=== PATIENT | male | born 1950 | race African-American/Black ===

== ENCOUNTER 2019-02-01 15:25 | Inpatient (IN) | payer OTHER ==
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
[2019-02-01 17:32] LABS: BASO % 0.7 % (0-2.0); EOS % 0.8 % (0-4.5); HEMATOCRIT 40.1 % (35.4-49); HEMOGLOBIN 12.8 GM/dL (11.7-16.9); LYMPH % 14.2 % (8-40); MCH 26.7 pg (25.7-33.7); MCHC 31.9 g/dl (32.0-35.9); MEAN CELL VOLUME 83.8 fl (80-96); MEAN PLT VOLUME 9.3 fl (7.5-11.1); MONO % 7.6 % (3.8-10.2); NEUT % 76.7 % (42.8-82.8); PLATELET COUNT 233 K/MM3 (134-434); RBC 4.79 M/mm3 (4.00-5.60); RDW 13.4 % (11.9-15.9); WHITE BLOOD COUNT 11.6 K/mm3 (4.0-10.0)
[2019-02-01 18:07] LABS: URINE APPEARANCE CLEAR; URINE BILIRUBIN NEGATIVE (NEGATIVE); URINE COLOR YELLOW; URINE GLUCOSE (UA) 2+ (NEGATIVE); URINE KETONE 1+ (NEGATIVE); URINE LEUK ESTERASE NEGATIVE (NEGATIVE); URINE NITRITE NEGATIVE (NEGATIVE); URINE PROTEIN NEGATIVE (NEGATIVE)
[2019-02-01 18:12] LABS: ALBUMIN 3.7 g/dl (3.4-5.0); BILIRUBIN,TOTAL 0.3 mg/dL (0.2-1); BLOOD UREA NITROGEN 19.2 mg/dL (7-18); CALCIUM 9.3 mg/dL (8.5-10.1); POTASSIUM 4.4 mmol/L (3.5-5.1); TOT PROT 7.6 g/dl (6.4-8.2)
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
[2019-02-01] MEDS ORDERED: ASPIRIN 325 MG ENTERIC COATED TABLET (FP) PO ONE (21:43)
[2019-02-01] MEDS ORDERED: ASPIRIN 325 MG ENTERIC COATED TABLET (FP) ONE (21:49)
--- NOTE | 2019-02-01 22:35 | PN.NIHSS ---
NIH Stroke Scale - Last Known Well Date/Time & Onset Date Last Known Well: 01/27/19 Time Last Known Well: 10:00 - Initial Evaluation Level of consciousness: Alert Ask patient the month and their age: Answers both correctly Ask patient to open & close eyes; make fist and let go: Obeys both correctly Best gaze (horizontal eye movement): Normal Visual field testing: No visual field loss Facial paresis (Show teeth/raise eyebrows/close eyes tight): Minor paralysis ( flattened nasolabial fold, asymmetry on smiling) Motor Function: Left Arm: Normal Motor Function: Right Arm: Drift Motor Function: Left Leg: Normal (extends leg 30 degrees for 5 seconds without drift) Motor Function: Right Leg: Normal (extends leg 30 degrees for 5 seconds without drift) Limb Ataxia: Present in one limb Sensory(Use pinprick test arms,legs,trunk,face/side to side): Mild to moderate decrease in sensation Best language (Describe picture, name items, read sentences): Mild to moderate aphasia Dysarthria (read several words): Normal articulation Extinction and Inattention: No abnormality - Total Score NIH Stroke Scale Score: 5
[2019-02-01 22:52] LABS: BASO % 0.9 % (0-2.0); EOS % 1.5 % (0-4.5); HEMATOCRIT 39.4 % (35.4-49); HEMOGLOBIN 12.5 GM/dL (11.7-16.9); LYMPH % 22.5 % (8-40); MCH 26.4 pg (25.7-33.7); MCHC 31.7 g/dl (32.0-35.9); MEAN PLT VOLUME 9.1 fl (7.5-11.1); NEUT % 64.1 % (42.8-82.8); PLATELET COUNT 217 K/MM3 (134-434); RBC 4.74 M/mm3 (4.00-5.60); RDW 13.7 % (11.9-15.9); WHITE BLOOD COUNT 10.7 K/mm3 (4.0-10.0)
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
[2019-02-01] MEDS ORDERED: HEPARIN NA (PORCINE) 5,000 UNITS/ML 1ML VIAL ONE (23:33)
[2019-02-02] MEDS: SODIUM CHLORIDE 1,000 ML IV SCH ×2 (00:30→17:16)
[2019-02-02] MEDS: HEPARIN NA (PORCINE) 5,000 UNITS/ML 1ML VIAL SQ SCH ×4 (00:30→21:28)
[2019-02-02 01:39] LABS: BASO % 0.6 % (0-2.0); EOS % 1.8 % (0-4.5); HEMATOCRIT 39.5 % (35.4-49); HEMOGLOBIN 12.6 GM/dL (11.7-16.9); LYMPH % 23.2 % (8-40); MCH 26.5 pg (25.7-33.7); MCHC 31.9 g/dl (32.0-35.9); MEAN CELL VOLUME 83.1 fl (80-96); MEAN PLT VOLUME 9.2 fl (7.5-11.1); MONO % 8.9 % (3.8-10.2); NEUT % 65.5 % (42.8-82.8); PLATELET COUNT 221 K/MM3 (134-434); RBC 4.75 M/mm3 (4.00-5.60); RDW 13.5 % (11.9-15.9); WHITE BLOOD COUNT 10.8 K/mm3 (4.0-10.0)
[2019-02-02 02:06] LABS: CHOLESTEROL 141 mg/dL (50-200); HDL CHOLESTEROL 30 mg/dL (40-60); LDL CHOLESTEROL (ONLY SJRH) 92 mg/dL (5-100); TRIGLYCERIDES 104 mg/dL (0-150)
[2019-02-02] MEDS ORDERED: INSULIN (NOVOLOG) ASPART 100 UNITS/ML 10ML VIAL ONE (06:23)
[2019-02-02] MEDS ORDERED: HEPARIN NA (PORCINE) 5,000 UNITS/ML 1ML VIAL ONE ×2 (06:23→15:19)
[2019-02-02] MEDS: INSULIN SLIDING SCALE (NOVOLOG) 1 VIAL SQ SCH ×2 (07:02→17:16)
--- NOTE | 2019-02-02 10:02 | CON.NEURO ---
Consult - Smoking History Smoking history: Never smoked Home Medications - Allergies Allergies/Adverse Reactions: Allergies Allergy/AdvReac Type Severity Reaction Status Date / Time No Known Allergies Allergy Verified 02/01/19 15:34 - Home Medications Home Medications: Ambulatory Orders Diltiazem HCl [Diltiazem 24Hr Cd] 240 mg PO DAILY 02/01/19 Dulaglutide [Trulicity] 0.75 mg SQ WEEKLY 02/01/19 Dulaglutide [Trulicity] 1.5 mg SQ WEEKLY 02/01/19 Famotidine [Pepcid] 40 mg PO DAILY 02/01/19 Fluticasone Propionate [Flonase Allergy Relief] 9.9 ml NS PRN 02/01/19 Fluticasone/Salmeterol [Advair 250-50 Diskus] 2 inh IN DAILY 02/01/19 Glimepiride 4 mg PO DAILY 02/01/19 Metoprolol Tartrate [Lopressor] 50 mg PO BID 02/01/19 Montelukast Sodium [Singulair] 10 mg PO DAILY 02/01/19 Sitagliptin Phosphate [Januvia] 50 mg PO DAILY 02/01/19 Spironolactone 25 mg PO DAILY 02/01/19 Valsartan/Hydrochlorothiazide [Valsartan-Hctz 320-12.5 mg Tab] 1 tab PO DAILY Physical Exam-Neuro Vital Signs: Vital Signs Temperature 99.4 F 02/01/19 23:00 Pulse Rate 68 02/01/19 19:15 Respiratory Rate 16 02/01/19 19:15 Blood Pressure 145/65 02/01/19 19:15 O2 Sat by Pulse Oximetry (%) 99 02/01/19 15:29 Labs: CBC, BMP 02/02/19 01:25 02/01/19 17:20 Assessment/Plan cc Right sided hemiparesis HPI 69 year old male history of HTN,IDDM, Asthma. Patient has history of DM, HTN , Asthma. He was not taking aspirin or statin at home. Patient has right sided hemiparesis and weakness, not feeling well for five days. Patient saw his pmd on january 28 and suspected to have ? viral illness. Patient has fall in his bathroom, and caem to hospital. His ct head showed left mca /ethics instructor region acute/subacute ischemic stroke. 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 Allergies No Known Allergies Allergy (Verified 02/01/19 15:34) HOME MEDICATIONS: Home Medications Medication Instructions Recorded Diltiazem HCl [Diltiazem 24Hr Cd] 240 mg PO DAILY 02/01/19 Dulaglutide [Trulicity] 0.75 mg SQ WEEKLY 02/01/19 Dulaglutide [Trulicity] 1.5 mg SQ WEEKLY 02/01/19 Famotidine [Pepcid] 40 mg PO DAILY 02/01/19 Glimepiride 4 mg PO DAILY 02/01/19 Metoprolol Tartrate [Lopressor] 50 mg PO BID 02/01/19 Sitagliptin Phosphate [Januvia] 50 mg PO 02/01/19 Spironolactone 25 mg PO DAILY 02/01/19 Valsartan/Hydrochlorothiazide tab PO DAILY 02/01/19 [Valsartan-Hctz 320-12.5 mg Tab] ROS,FH,SH reviewed in chart NEUROLOGICAL EXAMINATION Alert oriented x 3, speech is normal, neck is supple vss , bp on admission is 154/100 eomi, pupils reactive no face asymmetry moving all extremity now, he has right shoulder abduction mild weakness ct head showed Left DIRECTOR OF LEADERSHIP DEVELOPMENT/MCA ischemic lesion Assessment/Plan 69 year old male history of DM,HTN, came with right sided hemiparesis, symptoms partially resolved and still have mild right arm weakness. Patient left ica stenosis , ct showed left ethics instructor/mca ischemic lesion Plan: COntinue aspirin and statin - speech/swallow, PT , DVT Prophylaxis -vascular surgery consult - life style modifications, stroke education Thanking you so much Holden Jones MD
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
--- NOTE | 2019-02-02 12:53 | EKG ---
Test Reason : Blood Pressure : / mmHG Vent. Rate : 072 BPM Atrial Rate : 072 BPM P-R Int : 172 ms QRS Dur : 086 ms QT Int : 376 ms P-R-T Axes : 066 -28 079 degrees QTc Int : 411 ms NORMAL SINUS RHYTHM SEPTAL INFARCT , AGE UNDETERMINED ABNORMAL ECG WHEN COMPARED WITH ECG OF 01-FEB-2019 19:31, SEPTAL INFARCT IS NOW PRESENT Confirmed by MEGAN BARRIGA MD ([id number]) on 02/02/2019 12:52:49 PM Referred By: Confirmed By:MEGAN BARRIGA MD
--- NOTE | 2019-02-02 12:54 | EKG ---
Test Reason : Blood Pressure : / mmHG Vent. Rate : 066 BPM Atrial Rate : 066 BPM P-R Int : 186 ms QRS Dur : 080 ms QT Int : 392 ms P-R-T Axes : 070 -14 073 degrees QTc Int : 410 ms POOR DATA QUALITY, INTERPRETATION MAY BE ADVERSELY AFFECTED NORMAL SINUS RHYTHM NORMAL ECG NO PREVIOUS ECGS AVAILABLE Confirmed by MEGAN BARRIGA MD ([id number]) on 02/02/2019 12:53:56 PM Referred By: Confirmed By:MEGAN BARRIGA MD
[2019-02-02 13:08] LABS: CALCIUM 9.4 mg/dL (8.5-10.1); CREATININE 1.8 mg/dL (0.55-1.3); PHOSPHOROUS 3.1 mg/dL (2.5-4.9)
[2019-02-02] MEDS ORDERED: ACETAMINOPHEN INJECTION 0 ML IVPB ONE (13:18)
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
[2019-02-02 15:00] LABS: BLOOD UREA NITROGEN 15.2 mg/dL (7-18); CALCIUM 9.3 mg/dL (8.5-10.1); CREATININE 1.7 mg/dL (0.55-1.3); POTASSIUM 4.1 mmol/L (3.5-5.1)
[2019-02-02] MEDS ORDERED: ASPIRIN COATED 81 MG TABLET.EC ONE (15:18)
[2019-02-02] MEDS: ASPIRIN COATED 81 MG TABLET.EC PO SCH (15:39)
--- NOTE | 2019-02-02 15:59 | ECHO ---
Name: DIEGO BHATIASR Exam:Adult Echocardiogram Study Date: 02/02/2019 02:02 PM Age: 69 yrs Reason For Study: EVALUATE CARDIAC FUNCTION Height: 66 in Weight: 191 lb BSA: 2.0 m2 MMode/2D Measurements & Calculations IVSd: 1.0 cm Ao root diam: 3.4 cm LVIDd: 5.1 cm LA dimension: 3.1 cm LVIDs: 3.1 cm LVPWd: 0.73 cm EDV(Teich): 124.5 ml LVOT diam: 2.0 cm ESV(Teich): 38.1 ml Doppler Measurements & Calculations MV E max jag: 85.9 cm/sec Ao V2 max: 154.6 cm/sec MV A max jag: 137.2 cm/sec Ao max P.6 mmHg MV E/A: 0.63 Ao V2 mean: 107.5 cm/sec MV dec time: 0.21 sec Ao mean P.2 mmHg Ao V2 VTI: 26.9 cm AI P1/2t: 530.2 msec TOÑA(V,D): 1.6 cm2 AI max jag: 272.8 cm/sec LV V1 max P.6 mmHg AI max P.4 mmHg LV V1 max: 80.2 cm/sec AI dec slope: 150.7 cm/sec2 TR max jag: 251.6 cm/sec Med Peak E' Jag: 7.5 cm/sec TR max P.4 mmHg Med E/e': 11.4 Lat Peak E' Jag: 9.0 cm/sec Lat E/e': 9.6 Procedure A complete two-dimensional transthoracic echocardiogram was performed (2D, M-mode, Doppler and color flow Doppler). Left Ventricle The left ventricle is normal in size. Left ventricular systolic function is normal. Ejection Fraction = 65- 70%. No regional wall motion abnormalities noted. Right Ventricle The right ventricle is normal size. The right ventricular systolic function is normal. RV systolic TD I is 20 cm/s. Atria The left atrial size is normal. Right atrial size is normal. Mitral Valve There is mild mitral annular calcification. There is no mitral regurgitation noted. Tricuspid Valve The tricuspid valve is normal in structure and function. There is mild tricuspid regurgitation. Pulmo nary artery systolic pressure is at least 32 mmHg if RA pressure is assumed 3 mmHg. Aortic Valve There is mild aortic sclerosis.;. Mild aortic regurgitation. Pulmonic Valve The pulmonic valve is not well visualized. Great Vessels The aortic root is normal size. Pericardium/Pleura There is no pericardial effusion. Interpretation Summary The left ventricle is normal in size. Left ventricular systolic function is normal. No regional wall motion abnormalities noted. Ejection Fraction = 65-70%. The right ventricular systolic function is normal. The left atrial size is normal. Right atrial size is normal. There is mild mitral annular calcification. There is mild tricuspid regurgitation. Pulmonary artery systolic pressure is at least 32 mmHg if RA pressure is assumed 3 mmHg There is mild aortic sclerosis. Mild aortic regurgitation. There is no pericardial effusion. Felix Calvillo MD 02/02/2019 03:58 PM
[2019-02-02 16:44] VITALS: BMI 29.2
--- NOTE | 2019-02-02 17:55 | CONSULT ---
Consult Consult Specialty:: Vascular Surgery Reason for Consultation:: right sided weakness. - History Source Limitations to Obtaining History: No Limitations - Alcohol/Substance Use Hx Alcohol Use: No - Smoking History Smoking history: Never smoked Have you smoked in the past 12 months: No Home Medications - Allergies Allergies/Adverse Reactions: Allergies Allergy/AdvReac Type Severity Reaction Status Date / Time No Known Allergies Allergy Verified 02/01/19 15:34 - Home Medications Home Medications: Ambulatory Orders Diltiazem HCl [Diltiazem 24Hr Cd] 240 mg PO DAILY 02/01/19 Dulaglutide [Trulicity] 0.75 mg SQ WEEKLY 02/01/19 Dulaglutide [Trulicity] 1.5 mg SQ WEEKLY 02/01/19 Famotidine [Pepcid] 40 mg PO DAILY 02/01/19 Fluticasone Propionate [Flonase Allergy Relief] 9.9 ml NS PRN 02/01/19 Fluticasone/Salmeterol [Advair 250-50 Diskus] 2 inh IN DAILY 02/01/19 Glimepiride 4 mg PO DAILY 02/01/19 Metoprolol Tartrate [Lopressor] 50 mg PO BID 02/01/19 Montelukast Sodium [Singulair] 10 mg PO DAILY 02/01/19 Sitagliptin Phosphate [Januvia] 50 mg PO DAILY 02/01/19 Spironolactone 25 mg PO DAILY 02/01/19 Valsartan/Hydrochlorothiazide [Valsartan-Hctz 320-12.5 mg Tab] 1 tab PO DAILY Review of Systems - Review of Systems Constitutional: reports: No Symptoms Eyes: reports: No Symptoms HENT: reports: No Symptoms Neck: reports: No Symptoms Cardiovascular: reports: No Symptoms Respiratory: reports: No Symptoms Gastrointestinal: reports: No Symptoms Genitourinary: reports: No Symptoms Musculoskeletal: reports: No Symptoms Integumentary: reports: No Symptoms Neurological: reports: No Symptoms Endocrine: reports: Increased Thirst Hematology/Lymphatic: reports: No Symptoms Psychiatric: reports: No Symptoms Physical Exam Vital Signs: Vital Signs Temperature 98 F 02/02/19 16:30 Pulse Rate 87 02/02/19 16:30 Respiratory Rate 20 02/02/19 16:30 Blood Pressure 160/77 02/02/19 16:30 O2 Sat by Pulse Oximetry (%) 98 02/02/19 16:30 Constitutional: Yes: Well Nourished, No Distress, Calm Eyes: Yes: WNL, Conjunctiva Clear, EOM Intact HENT: Yes: WNL, Atraumatic, Normocephalic Neck: Yes: WNL, Supple, Trachea Midline Cardiovascular: Yes: WNL, Regular Rate and Rhythm Respiratory: Yes: WNL, Regular, CTA Bilaterally Gastrointestinal: Yes: WNL, Normal Bowel Sounds ...Rectal Exam: Yes: WNL Renal/: Yes: WNL Breast(s): Yes: WNL Musculoskeletal: Yes: WNL Extremities: Yes: WNL Edema: No Peripheral Pulses WNL: Yes Integumentary: Yes: WNL Neurological: Yes: WNL, Alert, Oriented ...Motor Strength: WNL Psychiatric: Yes: WNL Labs: CBC, BMP 02/02/19 01:25 02/02/19 14:20 Problem List - Problems (1) Acute left ICA ischemic stroke Assessment/Plan: Subacute stroke of left MCA area. Pt has critical stenosis of left ICA of about 90%. Pt started having right sided weakness last week and slowly got better. Pt needs rehab for 4 weeks to regain full function of right side. Pt will then CEA of left side. Might even benefit from a carotid stent at tertiary care center. Pt can follow up with me after transfer to rehab. Please maKE pt a appt in the office prior to DC --[phone] Sami Mosqueda DO Code(s): I63.232 - CEREB INFRC DUE TO UNSP OCCLS OR STENOS OF LEFT CAROTID ART
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
[2019-02-02] MEDS: METOPROLOL TARTRATE 50 MG TABLET (FP) PO SCH (21:28)
[2019-02-02] MEDS: ATORVASTATIN CA 80 MG TABLET (FP) PO SCH (21:28)
[2019-02-03] MEDS: HEPARIN NA (PORCINE) 5,000 UNITS/ML 1ML VIAL SQ SCH ×3 (06:34→21:26)
[2019-02-03] MEDS: INSULIN SLIDING SCALE (NOVOLOG) 1 VIAL SQ SCH ×2 (06:34→16:45)
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
[2019-02-03] MEDS: METOPROLOL TARTRATE 50 MG TABLET (FP) PO SCH ×2 (09:54→21:26)
[2019-02-03] MEDS: ASPIRIN COATED 81 MG TABLET.EC PO SCH (09:54)
--- NOTE | 2019-02-03 10:33 | PN ---
Progress Note (short form) - Note Progress Note: 69 year old male history of HTN,IDDM, Asthma. Patient has history of DM, HTN, Asthma. He was not taking aspirin or statin at home. Patient has right sided hemiparesis and weakness, not feeling well for five days. Patient saw his pmd on january 28 and suspected to have ? viral illness. Patient has fall in his bathroom, and caem to hospital. His ct head showed left mca /barista region acute/subacute ischemic stroke. His carotid ultrasound showed left critical stenosis no new complaining, right arm is weak. Vascualr surgery consult appreciated NEUROLOGICAL EXAMINATION Alert oriented x 3, speech is normal, neck is supple vss , bp on admission is 154/100 eomi, pupils reactive no face asymmetry moving all extremity now, he has right shoulder abduction mild weakness ct head showed Left SENIOR INTERNATIONAL TAX MANAGER/MCA ischemic lesion Assessment/Plan 69 year old male history of DM,HTN, came with right sided hemiparesis, symptoms partially resolved and still have mild right arm weakness. Patient left ica stenosis , ct showed left barista/mca ischemic lesion Plan: COntinue aspirin and statin - speech/swallow, PT , DVT Prophylaxis -vascular surgery consult appreciated - life style modifications, stroke education was discussed Thanking you so much Holden Jones MD
[2019-02-03] MEDS ORDERED: INSULIN (NOVOLOG) ASPART 100 UNITS/ML 10ML VIAL ONE (11:14)
--- NOTE | 2019-02-03 11:52 | PN ---
Progress Note, H[employer] - Note Progress Note: Selected Entries 02/03/19 02/03/19 02/03/19 01:00 05:00 09:00 Breakfast Temperature 98.3 F 97.8 F 97.8 F 02/03/19 10:57 Breakfast 100% Temperature Laboratory Tests 02/01/19 02/02/19 17:20 01:25 WBC 11.6 H 10.8 H MRI noted Patient left 90% ica stenosis , Seen by Neuro/Vascular sx. ct showed left lap checker/mca ischemic lesion Pt is Oriented verbal, speech precise, eating well. Upon reassessment, anomia with errors with denial of deficits. Eg can say hospital, [facility] but not [facility],Right/left errors and difficulty with complex multi-commands. Functional, denies difficulty/errors. Pt will benefit from language tx.
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
[2019-02-03] MEDS: VALSARTAN 160 MG TABLET (UD) PO SCH (12:15)
--- NOTE | 2019-02-03 16:33 | CONSULT ---
Consult - text type - Consultation Consultation Note: Renal consult for EDWAR vs. CKD This is a 69 year old gentleman with history of CKD, hypertension, IDDM, asthma who presented with unitateral weakness, fatigue and confusion and noted to have Cr of 2 to 1.7. PMhx: as above Allergies: NKDA Family Hx: NC Social Hx: No T/A/D ROS: as per HPI Home Medications Medication Instructions Recorded Diltiazem HCl [Diltiazem 24Hr Cd] 240 mg PO DAILY 02/01/19 Dulaglutide [Trulicity] 1.5 mg SQ WEEKLY 02/01/19 Famotidine [Pepcid] 40 mg PO DAILY 02/01/19 Fluticasone Propionate [Flonase 9.9 ml NS PRN 02/01/19 Allergy Relief] Fluticasone/Salmeterol [Advair 2 inh IN DAILY 02/01/19 250-50 Diskus] Glimepiride 4 mg PO DAILY 02/01/19 Metoprolol Tartrate [Lopressor] 50 mg PO BID 02/01/19 Montelukast Sodium [Singulair] 10 mg PO DAILY 02/01/19 Sitagliptin Phosphate [Januvia] 50 mg PO DAILY 02/01/19 Spironolactone 25 mg PO DAILY 02/01/19 Valsartan/Hydrochlorothiazide 1 tab PO DAILY 02/01/19 [Valsartan-Hctz 320-12.5 mg Tab] Albuterol 0.083% Nebulizer Ayanna 1 amp IH PRN PRN 02/03/19 [Ventolin 0.083% Nebulizer Soln -] Clomiphene Citrate 50 mg PO DAILY 02/03/19 Ipratropium/Albuterol Sulfate 1 inh IH DAILY 02/03/19 [Combivent Respimat 20-100 Mcg] Vital Signs Temperature 98.2 F 02/03/19 14:53 Pulse Rate 83 02/03/19 14:53 Respiratory Rate 20 02/03/19 14:53 Blood Pressure 147/74 02/03/19 14:53 O2 Sat by Pulse Oximetry (%) 99 02/03/19 09:00 Intake & Output 01/31/19 02/01/19 02/02/19 02/03/19 23:59 23:59 23:59 23:59 Intake Total 300 700 Balance 300 700 Weight 87 kg 84.822 kg NAD awake and alert neck supple RRR CTA soft NT/ND No LE edema CBC, BMP 02/02/19 01:25 02/02/19 14:20 Current Medications Aspirin (Ecotrin -) 81 mg PO DAILY [facility] Last Admin: 02/03/19 09:54 Dose: 81 mg Atorvastatin Calcium (Lipitor -) 80 mg PO HS [facility] Last Admin: 02/02/19 21:28 Dose: 80 mg Heparin Sodium (Porcine) (Heparin -) 5,000 unit SQ TID [facility] Last Admin: 02/03/19 13:24 Dose: 5,000 unit Insulin Aspart (Novolog Vial Sliding Scale -) 1 vial SQ BIDAC [facility]; Protocol Last Admin: 02/03/19 06:34 Dose: Not Given Metoprolol Tartrate (Lopressor -) 50 mg PO BID [facility] Last Admin: 02/03/19 09:54 Dose: 50 mg Valsartan (Diovan -) 320 mg PO DAILY [facility] Last Admin: 02/03/19 12:15 Dose: 320 mg 69 year old gentleman with history of CKD, hypertension, IDDM, asthma who presented with unitateral weakness, fatigue and confusion and noted to have Cr of 2 to 1.7. 1. CKD stage 3a 2. TIA vs. CVA 3. Hypertension 4. IDDM Renal function stable. No overt electrolyte or acid base disturbance Renal US showed no obstruction and normal echotexture. UA w/o active sediment Will need to obtain outpatient records to trend renal function over longer time period avoid IV contrast and NSAIDs continue present management including ARB. Goal BP < 130/80 Thank you will follow Bertrand De La Paz DO
[2019-02-03] MEDS: ATORVASTATIN CA 80 MG TABLET (FP) PO SCH (21:26)
[2019-02-04] MEDS: INSULIN SLIDING SCALE (NOVOLOG) 1 VIAL SQ SCH (06:02)
[2019-02-04] MEDS: HEPARIN NA (PORCINE) 5,000 UNITS/ML 1ML VIAL SQ SCH ×2 (06:04→14:55)
--- NOTE | 2019-02-04 09:09 | PN ---
Progress Note (short form) - Note Progress Note: 69 year old male history of HTN,IDDM, Asthma. Patient has history of DM, HTN, Asthma. He was not taking aspirin or statin at home. Patient has right sided hemiparesis and weakness, not feeling well for five days. Patient saw his pmd on january 28 and suspected to have ? viral illness. Patient has fall in his bathroom, and caem to hospital. His ct head showed left mca /recreation facilities supervisor region acute/subacute ischemic stroke. His carotid ultrasound showed left critical stenosis no new complaining, right arm is weak. Vascualr surgery consult appreciated , pateint is feeling better NEUROLOGICAL EXAMINATION Alert oriented x 3, speech is normal, neck is supple vss , eomi, pupils reactive no face asymmetry moving all extremity now, he has right shoulder abduction mild weakness ct head showed Left TAX COMPLIANCE REPRESENTATIVE/MCA ischemic lesion Assessment/Plan 69 year old male history of DM,HTN, came with right sided hemiparesis, symptoms partially resolved and still have mild right arm weakness. Patient left ica stenosis , ct showed left recreation facilities supervisor/mca ischemic lesion Plan: COntinue aspirin and statin - speech/swallow, PT , DVT Prophylaxis -vascular surgery consult appreciated , would be a candidate for CEA in 4-6 week and would follow up with dr rodas as outpatient - life style modifications, stroke education was discussed Thanking you so much Holden Jones MD
[2019-02-04 09:29] VITALS: BP 134/70; PULSE 90; TEMP 98.3
[2019-02-04] MEDS: METOPROLOL TARTRATE 50 MG TABLET (FP) PO SCH (11:15)
[2019-02-04] MEDS: ASPIRIN COATED 81 MG TABLET.EC PO SCH (11:15)
[2019-02-04] MEDS: VALSARTAN 160 MG TABLET (UD) PO SCH (11:15)
--- NOTE | 2019-02-04 11:32 | PN ---
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 Right/left confusion. Errors in following complex commands, recalling longer directions, which will affect his functional ability for ADL. Nursing observed assessment. Good spirits. Doing well with diet. REC: Out pt Sp/Language Cognitive tx- consider [facility]
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
== END 2019-02-04 15:25 | disposition home health service (06) | DRG 65 ==
LOC: JER 15:25 → JERBED 20:02 → J4W 02-02 16:33
PROVIDERS: ADMIT Internal Medicine; ATTEND Hospitalist
DX: I63.232 Cerebral infarction due to unspecified occlusion or stenosis of left carotid arteries (principal); I69.351 Hemiplegia and hemiparesis following cerebral infarction affecting right dominant side; N17.9 Acute kidney failure, unspecified; R29.810 Facial weakness; R29.705 NIHSS score 5; I12.9 Hypertensive chronic kidney disease with stage 1 through stage 4 chronic kidney disease, or unspecified chronic kidney disease; E11.9 Type 2 diabetes mellitus without complications; I10 Essential (primary) hypertension; E11.22 Type 2 diabetes mellitus with diabetic chronic kidney disease; N18.3 Chronic kidney disease, stage 3 (moderate); E66.9 Obesity, unspecified; Z68.29 Body mass index [BMI] 29.0-29.9, adult; D72.829 Elevated white blood cell count, unspecified; R29.6 Repeated falls
CPT/HCPCS: 36415; 70450-TC; 70544-TC; 70547-TC; 70551-TC; 71045-TC-FY; 76775-TC; 76856-TC; 80048; 80053; 80061; 81003; 82436; 82550; 82553; 82962; 83036; 83721; 83735; 83935; 84100; 84133; 84300; 84443; 84484; 85025; 87086; 93005; 93010; 93306-TC; 93880-TC; 97116-GP; 97161-GP; 99285-25; J1644; J7030

== ENCOUNTER 2019-05-25 18:00 | Inpatient (IN) | payer OTHER ==
--- NOTE | 2019-05-25 18:07 | PDOC ---
Rapid Medical Evaluation Time Seen by Provider: 05/25/19 18:02 Medical Evaluation: Allergies Allergy/AdvReac Type Severity Reaction Status Date / Time No Known Allergies Allergy Verified 02/01/19 15:34 05/25/19 18:03 This patient had brief in-person evaluation in triage cc: sent for admission HPI: patient states sent by pmd for admission for hydration Reports s/p stroke 2019, and needs procedure. States lab work is abnormal PE: appears well unlabored breathing heart s1s2 Oders: labs ordered This patient will proceed to emergency department for further evaluation. Discharge Disposition - Diagnosis Abnormal respiratory laboratory results - Referrals - Patient Instructions - Post Discharge Activity
[2019-05-25 18:48] LABS: BASO % 0.9 % (0-2.0); EOS % 14.5 % (0-4.5); HEMATOCRIT 41.9 % (35.4-49); HEMOGLOBIN 13.4 GM/dL (11.7-16.9); LYMPH % 22.2 % (8-40); MCH 26.6 pg (25.7-33.7); MCHC 31.9 g/dl (32.0-35.9); MEAN CELL VOLUME 83.3 fl (80-96); MEAN PLT VOLUME 10.1 fl (7.5-11.1); MONO % 7.7 % (3.8-10.2); NEUT % 54.7 % (42.8-82.8); PLATELET COUNT 192 K/MM3 (134-434); RBC 5.03 M/mm3 (4.00-5.60); RDW 15.2 % (11.9-15.9); WHITE BLOOD COUNT 10.4 K/mm3 (4.0-10.0)
[2019-05-25 19:02] LABS: INR 1.09 (0.83-1.09); PROTHROMBIN TIME (PATIENT) 12.9 SEC (9.7-13.0)
[2019-05-25 19:04] LABS: ACTIVATED PTT 38.2 SECONDS (25.2-36.5)
[2019-05-25 19:14] LABS: ALBUMIN 3.8 g/dl (3.4-5.0); BILIRUBIN,TOTAL 0.2 mg/dL (0.2-1); BLOOD UREA NITROGEN 22.7 mg/dL (7-18); CALCIUM 9.4 mg/dL (8.5-10.1); CREATININE 1.9 mg/dL (0.55-1.3); POTASSIUM 4.2 mmol/L (3.5-5.1); TOT PROT 7.4 g/dl (6.4-8.2)
--- NOTE | 2019-05-25 20:22 | PDOC ---
History of Present Illness - General Chief Complaint: Revisit, Lab Variance Stated Complaint: SENT BY PCP/EVALUATION Time Seen by Provider: 05/25/19 18:02 History Source: Patient - History of Present Illness Initial Comments: 05/25/19 20:18 69 year sent by PCP and Dr. Mosqueda for evaluation and possible admission. patient reports that he is to have a cartoid stent procedure done, PCP couldnt clear for surgery due to abnormal kidney function. as per patient sent to the hospital for possible hydration/ patient denies chest pain, NVD, abdominal pain , headache, dizziness Past History - Past Medical History Allergies/Adverse Reactions: Allergies Allergy/AdvReac Type Severity Reaction Status Date / Time No Known Allergies Allergy Verified 05/25/19 18:07 Home Medications: Ambulatory Orders Dulaglutide [Trulicity] 1.5 mg SQ WEEKLY 02/01/19 Fluticasone/Salmeterol [Advair 250-50 Diskus] 2 inh IN DAILY PRN 02/01/19 Metoprolol Tartrate [Lopressor] 50 mg PO BID 02/01/19 Montelukast Sodium [Singulair] 10 mg PO DAILY PRN 02/01/19 Sitagliptin Phosphate [Januvia] 50 mg PO DAILY 02/01/19 Valsartan/Hydrochlorothiazide [Valsartan-Hctz 320-12.5 mg Tab] 1 tab PO DAILY Ipratropium/Albuterol Sulfate [Combivent Respimat 20-100 Mcg] 1 inh IH DAILY PRN 02/03/19 Aspirin Coated [Ecotrin -] 81 mg PO DAILY 30 Days #30 tablet.ec 02/04/19 Atorvastatin Ca [Lipitor] 80 mg PO HS 30 Days #30 tablet 02/04/19 Spironolactone [Aldactone] 1 tab PO DAILY 02/23/19 Asthma: Yes CVA: Yes (01/2019) COPD: No Diabetes: Yes HTN: Yes Hypercholesterolemia: Yes - Immunization History Immunization Up to Date: Yes - Psycho Social/Smoking Cessation Hx Smoking History: Never smoked Have you smoked in the past 12 months: No Information on smoking cessation initiated: No Hx Alcohol Use: No Drug/Substance Use Hx: No Review of Systems - Review of Systems Able to Perform ROS?: Yes Is the patient limited German proficient: No Constitutional: No: Symptoms Reported, See HPI, Chills, Diaphoresis, Fever, Loss of Appetite, Malaise, Night Sweats, Weakness, Weight Stable, Unintentional Wgt. Loss, Unexplained wgt Loss, Other HEENTM: No: Symptoms Reported, See HPI, Eye Pain, Blurred Vision, Tearing, Recent change in vision, Double Vision, Cataracts, Ear Pain, Ocular Prothesis, Ear Discharge, Nose Pain, Nose Congestion, Tinnitus, Nose Bleeding, Hearing Loss , Throat Pain, Throat Swelling, Mouth Pain, Dental Problems, Difficulty Swallowing, Mouth Swelling, Other Cardiac (ROS): No: Symptoms Reported, See HPI, Chest Pain, Edema, Irregular Heart Rate, Lightheadedness, Palpitations, Syncope, Chest Tightness, Other Neurological: No: Symptoms reported, See HPI, Headache, Numbness, Paresthesia, Pre-Existing Deficit, Seizure, Tingling, Tremors, Weakness, Unsteady Gait, Ataxia, Dizziness, Other *Physical Exam - Vital Signs Last Vital Signs Temp Pulse Resp BP Pulse Ox 97.8 F 60 18 153/53 L 98 05/25/19 18:03 05/25/19 18:03 05/25/19 18:03 05/25/19 18:05/25/19 18:03 - Physical Exam General Appearance: Yes: Appropriately Dressed HEENT: positive: Normal ENT Inspection Respiratory/Chest: positive: Lungs Clear Cardiovascular: positive: Regular Rhythm, Regular Rate Gastrointestinal/Abdominal: positive: Normal Bowel Sounds, Soft. negative: Tender Extremity: positive: Normal Capillary Refill, Normal Inspection, Normal Range of Motion Integumentary: positive: Normal Color, Dry, Warm Neurologic: positive: Fully Oriented, Alert, Normal Mood/Affect ED Treatment Course - LABORATORY CBC & Chemistry Diagram: 05/25/19 18:19 05/25/19 18:19 - ADDITIONAL ORDERS Additional order review: Laboratory Results 05/25/19 05/25/19 18:19 18:19 PT with INR 12.90 INR 1.09 PTT (Actin FS) 38.2 H Sodium 138 Potassium 4.2 Chloride 106 Carbon Dioxide 25 Anion Gap 7 L BUN 22.7 H Creatinine 1.9 H Est GFR (CKD-EPI)AfAm 41.07 Est GFR (CKD-EPI)NonAf 35.44 Random Glucose 252 H Calcium 9.4 Total Bilirubin 0.2 AST 34 ALT 72 H Alkaline Phosphatase 153 H Total Protein 7.4 Albumin 3.8 05/25/19 18:19 RBC 5.03 MCV 83.3 MCHC 31.9 L RDW 15.2 D MPV 10.1 Neutrophils % 54.7 Lymphocytes % 22.2 Monocytes % 7.7 Eosinophils % 14.5 H D Basophils % 0.9 Medical Decision Making - Medical Decision Making elevated creatinine; P: cbc cmp ua chest xray ekg 05/25/19 22:[address] Mosqueda. Reports that patient has a left carotid stenosis and need a CTA to plan for future surgery. Patient has creatinine elevated to 1.9. 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
[2019-05-25] MEDS ORDERED: SODIUM CHLORIDE 1,000 ML IV SCH ×2 (23:00)
--- NOTE | 2019-05-25 23:02 | HP ---
Admitting History and Physical - Primary Care Physician PCP: Vega Arnold Jr - Admission Chief Complaint: Abnormal Lab Value History of Present Illness: This is a 69 y/o man with a PMHx of CVA (right sided residual), HTN, HLD, IDDM, Asthma. Who presents to the ED sent in by the PCP and Dr. Mosqueda for evaluation and admission for elevated creatinine. Patient and his reports that he is scheduled to have a carotid stent procedure done, PCP couldn't clear for surgery due to abnormal kidney function. Patient denies numbness or tingling sensations. 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 Cardiovascular: Yes: HTN, Hyperlipdemia Pulmonary: Yes: Asthma Endocrine: Yes: Diabetes Mellitus - Smoking History Smoking history: Never smoked Have you smoked in the past 12 months: No - Alcohol/Substance Use Hx Alcohol Use: No History of Substance Use: reports: None - Social History Usual Living Arrangement: Yes: With Spouse ADL: Family Assistance History of Recent Travel: No Home Medications - Allergies Allergies/Adverse Reactions: Allergies Allergy/AdvReac Type Severity Reaction Status Date / Time No Known Allergies Allergy Verified 05/25/19 18:07 - Home Medications Home Medications: Ambulatory Orders Fluticasone/Salmeterol [Advair 250-50 Diskus] 2 inh IN DAILY PRN 02/01/19 Metoprolol Tartrate [Lopressor] 50 mg PO BID 02/01/19 Montelukast Sodium [Singulair] 10 mg PO DAILY PRN 02/01/19 Sitagliptin Phosphate [Januvia] 50 mg PO DAILY 02/01/19 Valsartan/Hydrochlorothiazide [Valsartan-Hctz 320-12.5 mg Tab] 1 tab PO DAILY Ipratropium/Albuterol Sulfate [Combivent Respimat 20-100 Mcg] 1 inh IH DAILY PRN 02/03/19 Aspirin Coated [Ecotrin -] 81 mg PO DAILY 30 Days #30 tablet.ec 02/04/19 Atorvastatin Ca [Lipitor] 80 mg PO HS 30 Days #30 tablet 02/04/19 Spironolactone [Aldactone] 1 tab PO DAILY 02/23/19 Family Medical History Family History: Unable to Obtain Review of Systems - Review of Systems Constitutional: reports: No Symptoms Eyes: reports: No Symptoms HENT: reports: No Symptoms Neck: reports: No Symptoms Cardiovascular: reports: No Symptoms Respiratory: reports: No Symptoms Gastrointestinal: reports: No Symptoms Genitourinary: reports: No Symptoms Breasts: reports: No Symptoms Reported Musculoskeletal: reports: No Symptoms Integumentary: reports: No Symptoms Neurological: reports: No Symptoms Endocrine: reports: No Symptoms Hematology/Lymphatic: reports: No Symptoms Psychiatric: reports: No Symptoms Pain Intensity: 0 Physical Examination Vital Signs: Vital Signs Temperature 97.8 F 05/25/19 18:03 Pulse Rate 60 05/25/19 18:03 Respiratory Rate 18 05/25/19 18: Blood Pressure 153/53 L 05/25/19 18:03 O2 Sat by Pulse Oximetry (%) 98 05/25/19 18:03 Constitutional: Yes: Well Nourished, No Distress, Calm Eyes: Yes: WNL, Conjunctiva Clear, EOM Intact, PERRL HENT: Yes: WNL, Atraumatic, Normocephalic Neck: Yes: WNL, Supple, Trachea Midline Cardiovascular: Yes: WNL, Regular Rate and Rhythm, S1, S2 Respiratory: Yes: Rhonchi (upper lobes). No: SOB, SOB on Exertion Gastrointestinal: Yes: WNL, Normal Bowel Sounds, Soft ...Rectal Exam: Yes: Deferred Renal/: Yes: WNL Breast(s): Yes: WNL Musculoskeletal: Yes: WNL Extremities: Yes: WNL Edema: No Peripheral Pulses WNL: Yes Neurological: Yes: Alert, Oriented, Pre-Existing Deficit Psychiatric: Yes: WNL, Alert, Oriented Labs: CBC, BMP 05/25/19 18:19 05/25/19 18:19 Laboratory Results - last 24 hr 05/25/19 05/25/19 05/25/19 18:19 18:19 18: WBC 10.4 H RBC 5.03 Hgb 13.4 Hct 41.9 MCV 83.3 MCH 26.6 MCHC 31.9 L RDW 15.2 D Plt Count 192 MPV 10.1 Absolute Neuts (auto) 5.7 Neutrophils % 54.7 Lymphocytes % 22.2 Monocytes % 7.7 Eosinophils % 14.5 H D Basophils % 0.9 Nucleated RBC % 0 PT with INR 12.90 INR 1.09 PTT (Actin FS) 38.2 H Sodium 138 Potassium 4.2 Chloride 106 Carbon Dioxide 25 Anion Gap 7 L BUN 22.7 H Creatinine 1.9 H Est GFR (CKD-EPI)AfAm 41.07 Est GFR (CKD-EPI)NonAf 35.44 Random Glucose 252 H Calcium 9.4 Total Bilirubin 0.2 AST 34 ALT 72 H Alkaline Phosphatase 153 H Total Protein 7.4 Albumin 3.8 Urine Color Urine Appearance Urine pH Ur Specific Irwin Urine Protein Urine Glucose (UA) Urine Ketones Urine Blood Urine Nitrite Urine Bilirubin Urine Urobilinogen Ur Leukocyte Esterase 05/26/19 00:00 WBC RBC Hgb Hct MCV MCH MCHC RDW Plt Count MPV Absolute Neuts (auto) Neutrophils % Lymphocytes % Monocytes % Eosinophils % Basophils % Nucleated RBC % PT with INR INR PTT (Actin FS) Sodium Potassium Chloride Carbon Dioxide Anion Gap BUN Creatinine Est GFR (CKD-EPI)AfAm Est GFR (CKD-EPI)NonAf Random Glucose Calcium Total Bilirubin AST ALT Alkaline Phosphatase Total Protein Albumin Urine Color Yellow Urine Appearance Clear Urine pH 5.0 Ur Specific Irwin 1.019 Urine Protein Negative Urine Glucose (UA) Trace Urine Ketones Negative Urine Blood Negative Urine Nitrite Negative Urine Bilirubin Negative Urine Urobilinogen 0.2 Ur Leukocyte Esterase Negative Intake & Output 05/23/19 05/24/19 05/25/19 05/26/19 23:59 23:59 23:59 23:59 Intake Total 150 Balance 150 Weight 84.822 kg 83.915 kg Current Medications Generic Name Dose Route Start Last Admin Trade Name Freq PRN Reason Stop Dose Admin Albuterol/Ipratropium 1 amp 05/26/19 04:47 05/26/19 05:17 Duoneb - NEB 05/27/19 06:00 1 amp Q4H PRN Administration WHEEZING Aspirin 81 mg 05/26/19 10:00 Asa - PO DAILY SHELTON Atorvastatin Calcium 80 mg 05/26/19 22:00 Lipitor - PO HS SHELTON Heparin Sodium (Porcine) 5,000 unit 05/26/19 10:00 Heparin - SQ BID SHELTON Sodium Chloride 1,000 mls @ 75 mls/hr 05/25/19 23:00 05/26/19 00:18 Normal Saline - IV 75 mls/hr ASDIR SHELTON Administration Metoprolol Tartrate 50 mg 05/26/19 00:15 05/26/19 01:18 Lopressor - PO Not Given BID SHELTON Valsartan 320 mg 05/26/19 10:00 Diovan - PO DAILY SHELTON Imaging - Results Chest X-ray: Report Reviewed, Image Reviewed EKG: Image Reviewed Problem List - Problems (1) Acute kidney injury superimposed on chronic kidney disease Assessment/Plan: Cr 1.9 ( baseline 1.7-2.0) Appreciate Nephrology consult Renal US 01/2019- normal kidneys. no evidence of hydronephrosis or acute pathology Will defer repeat renal US to nephrology or Day Team IVF Monitor BMP Monitor vitals Code(s): N17.9 - ACUTE KIDNEY FAILURE, UNSPECIFIED; N18.9 - CHRONIC KIDNEY DISEASE, UNSPECIFIED (2) Diabetes mellitus Assessment/Plan: sub optimal BGMs ISS Continue home meds Monitor BMP Code(s): E11.9 - TYPE 2 DIABETES MELLITUS WITHOUT COMPLICATIONS (3) CVA (cerebral vascular accident) Assessment/Plan: Will continue to monitor and treat with interventions accordingly Fall Precautions Code(s): I63.9 - CEREBRAL INFARCTION, UNSPECIFIED (4) Asthma Assessment/Plan: Duonebs Monitor Vitals O2 Code(s): J45.909 - UNSPECIFIED ASTHMA, UNCOMPLICATED (5) Hypertension Assessment/Plan: stable Monitor BP Continue home med Monitor renal function Code(s): I10 - ESSENTIAL (PRIMARY) HYPERTENSION Assessment/Plan This is a 69 y/o man with a PMHx of CVA (right sided residual), HTN, HLD, IDDM, Asthma. Admitted for Acute on Chronic Kidney Disease for further evaluation of their emergent condition. Plan: See Problem List FEN NS@75ml/hr Replete lytes prn Low Na, Diabetic Diet DVT ppx OOB SCDs Heparin SQ Dispo: Requires Inpatient Care Visit type - Emergency Visit Emergency Visit: Yes ED Registration Date: 05/25/19 Care time: The patient presented to the Emergency Department on the above date and was hospitalized for further evaluation of their emergent condition. - New Patient This patient is new to me today: Yes Date on this admission: 05/25/19 - Critical Care Critical Care patient: No
[2019-05-26] MEDS ORDERED: ATORVASTATIN CA 80 MG TABLET (FP) PO ONE (00:03)
[2019-05-26 00:23] LABS: URINE APPEARANCE CLEAR; URINE BILIRUBIN NEGATIVE (NEGATIVE); URINE COLOR YELLOW; URINE GLUCOSE (UA) TRACE (NEGATIVE); URINE KETONE NEGATIVE (NEGATIVE); URINE LEUK ESTERASE NEGATIVE (NEGATIVE); URINE NITRITE NEGATIVE (NEGATIVE); URINE PROTEIN NEGATIVE (NEGATIVE); URINE UROBILINOGEN 0.2 mg/dL (0.2-1.0)
[2019-05-26] MEDS ORDERED: METOPROLOL TARTRATE 50 MG TABLET (FP) ONE (01:08)
[2019-05-26] MEDS ORDERED: ATORVASTATIN CA 40 MG TABLET (FP) ONE (01:10)
[2019-05-26] MEDS: METOPROLOL TARTRATE 50 MG TABLET (FP) PO SCH ×3 (01:18→21:09)
[2019-05-26 04:31] VITALS: BMI 29.0
[2019-05-26] MEDS: ALBUTEROL SO4 2.5/IPRATROPIUM 0.5 INH SOL 3 ML VIAL.NEB. NEB PRN ×3 (05:17→20:20)
[2019-05-26 07:31] LABS: BASO % 0.8 % (0-2.0); EOS % 11.7 % (0-4.5); HEMATOCRIT 38.2 % (35.4-49); HEMOGLOBIN 12.6 GM/dL (11.7-16.9); LYMPH % 33.5 % (8-40); MCHC 32.9 g/dl (32.0-35.9); MEAN CELL VOLUME 82.3 fl (80-96); MEAN PLT VOLUME 9.9 fl (7.5-11.1); MONO % 8.2 % (3.8-10.2); NEUT % 45.8 % (42.8-82.8); PLATELET COUNT 164 K/MM3 (134-434); RBC 4.64 M/mm3 (4.00-5.60); RDW 14.9 % (11.9-15.9); WHITE BLOOD COUNT 9.9 K/mm3 (4.0-10.0)
[2019-05-26 08:15] LABS: BLOOD UREA NITROGEN 19.3 mg/dL (7-18); CALCIUM 9.5 mg/dL (8.5-10.1); CREATININE 1.7 mg/dL (0.55-1.3); POTASSIUM 3.5 mmol/L (3.5-5.1)
--- NOTE | 2019-05-26 09:27 | EKG ---
Test Reason : Blood Pressure : / mmHG Vent. Rate : 059 BPM Atrial Rate : 059 BPM P-R Int : 182 ms QRS Dur : 088 ms QT Int : 418 ms P-R-T Axes : 063 -19 073 degrees QTc Int : 413 ms SINUS BRADYCARDIA SEPTAL INFARCT (CITED ON OR BEFORE 01-FEB-2019) ABNORMAL ECG WHEN COMPARED WITH ECG OF 01-FEB-2019 22:12, NO SIGNIFICANT CHANGE WAS FOUND Confirmed by Ashwin Cai MD ([id number]) on 05/26/2019 9:26:32 AM Referred By: Confirmed By:Ashwin Cai MD
[2019-05-26] MEDS: ASPIRIN 81 MG CHEWABLE TABLETS PO SCH (09:33)
[2019-05-26] MEDS: amLODIPine BESYLATE 5 MG TABLET (FP) PO SCH (09:33)
[2019-05-26] MEDS: HEPARIN NA (PORCINE) 5,000 UNITS/ML 1ML VIAL SQ SCH ×2 (09:33→21:09)
[2019-05-26] MEDS ORDERED: VALSARTAN 160 MG TABLET (UD) PO SCH (10:00)
--- NOTE | 2019-05-26 11:59 | PN ---
Teaching Attending Note Name of Resident: Joao Ferrari ATTENDING PHYSICIAN STATEMENT I saw and evaluated the patient. I reviewed the resident's note and discussed the case with the resident. I agree with the resident's findings and plan as documented. Seen and examined; please see resident note for further historical information. I personally verified all pena historical information and exam findings. Personally interpreted all imaging and diagnostics and reviewed appropriate consults. I reviewed all labs and vital signs as per resident note and EMR as documented. I agree with the above assessment and plan unless supplemented by myself in the following. Patient with history of CVA with right-sided residual deficits, hypertension, hyperlipidemia, insulin-dependent diabetes, asthma presented to the emergency room for evaluation of elevated creatinine that was found to be chronic and persisting since at least. He needs CTA. We will discuss with vascular surgery what they would like done. Likely no need for inpatient renal intervention given that this is indeed his baseline creatinine. Will defer imaging regarding the CTA to vascular surgery, but otherwise from medical standpoint the patient has standing CKD and no acute medical issues. 10 item review of systems completed and is negative aside from as discussed in the subjective data in my own/the resident documentation. VS, labs, imaging reviewed NAD, AAO, resting comfortably in bed. RRR s1/2 no mgr Normal muscle tone, moves all 5 extremities with normal apparent strength Neck is supple, trachea midline, no epi LN Lungs CTAB with sym expansion NT ND +BS no epi organomegaly CN2-12 wnl; no FND NC AT EOMI PERRLA Normal mood, appropriate behavior, euthymic affect No skin breakdown or rashes noted
[2019-05-26] MEDS: SODIUM CHLORIDE 1,000 ML IV SCH (15:40)
--- NOTE | 2019-05-26 17:06 | PN ---
Physical Exam: SUBJECTIVE: Patient seen and examined. Pt has no c/o overnight or issues. Pt reports no fever or chills. Asymptomatic and afebrile. Denies f/c/n/v/d/sob, cp OBJECTIVE: Vital Signs Period Temp Pulse Resp BP Sys/Cordero Pulse Ox Last 24 Hr 97.8 F-98.2 F 60-62 18-18 140-167/53-79 97-99 GENERAL: The patient is awake, alert, and fully oriented, in no acute distress. EYES: PERRL, extraocular movements intact, sclera anicteric, conjunctiva clear. No ptosis. ENT: oropharynx clear without exudates, moist mucous membranes. LUNGS: Breath sounds equal, clear to auscultation bilaterally, no wheezes, no crackles, HEART: Regular rate and rhythm, S1, S2 without murmur, rub or gallop. ABDOMEN: Soft, nontender, nondistended, normoactive bowel sounds, no guarding, EXTREMITIES: 2+ pulses, warm, well-perfused, no edema. NEUROLOGICAL: Cranial nerves II through XII grossly intact. . SKIN: Warm, dry, normal turgor, no rashes or lesions noted Laboratory Results - last 24 hr 05/25/19 05/25/19 05/25/19 18:19 18:19 18:19 WBC 10.4 H RBC 5.03 Hgb 13.4 Hct 41.9 MCV 83.3 MCH 26.6 MCHC 31.9 L RDW 15.2 D Plt Count 192 MPV 10.1 Absolute Neuts (auto) 5.7 Neutrophils % 54.7 Lymphocytes % 22.2 Monocytes % 7.7 Eosinophils % 14.5 H D Basophils % 0.9 Nucleated RBC % 0 PT with INR 12.90 INR 1.09 PTT (Actin FS) 38.2 H Sodium 138 Potassium 4.2 Chloride 106 Carbon Dioxide 25 Anion Gap 7 L BUN 22.7 H Creatinine 1.9 H Est GFR (CKD-EPI)AfAm 41.07 Est GFR (CKD-EPI)NonAf 35.44 Random Glucose 252 H Calcium 9.4 Total Bilirubin 0.2 AST 34 ALT 72 H Alkaline Phosphatase 153 H Total Protein 7.4 Albumin 3.8 Urine Color Urine Appearance Urine pH Ur Specific Morrison Urine Protein Urine Glucose (UA) Urine Ketones Urine Blood Urine Nitrite Urine Bilirubin Urine Urobilinogen Ur Leukocyte Esterase 05/26/19 05/26/19 05/26/19 00:00 07:08 07:08 WBC 9.9 RBC 4.64 Hgb 12.6 Hct 38.2 MCV 82.3 MCH 27.0 MCHC 32.9 RDW 14.9 Plt Count 164 MPV 9.9 Absolute Neuts (auto) 4.5 Neutrophils % 45.8 Lymphocytes % 33.5 D Monocytes % 8.2 Eosinophils % 11.7 H Basophils % 0.8 Nucleated RBC % 0 PT with INR INR PTT (Actin FS) Sodium 142 Potassium 3.5 Chloride 109 H Carbon Dioxide 26 Anion Gap 7 L BUN 19.3 H Creatinine 1.7 H Est GFR (CKD-EPI)AfAm 46.98 Est GFR (CKD-EPI)NonAf 40.54 Random Glucose 114 H Calcium 9.5 Total Bilirubin AST ALT Alkaline Phosphatase Total Protein Albumin Urine Color Yellow Urine Appearance Clear Urine pH 5.0 Ur Specific Morrison 1.019 Urine Protein Negative Urine Glucose (UA) Trace Urine Ketones Negative Urine Blood Negative Urine Nitrite Negative Urine Bilirubin Negative Urine Urobilinogen 0.2 Ur Leukocyte Esterase Negative Active Medications Current Medications Albuterol/Ipratropium (Duoneb -) 1 amp NEB Q4H PRN PRN Reason: WHEEZING Stop: 05/27/19 06:00 Last Admin: 05/26/19 15:45 Dose: 1 amp Amlodipine Besylate (Norvasc -) 5 mg PO DAILY [facility] Last Admin: 05/26/19 09:33 Dose: 5 mg Aspirin (Asa -) 81 mg PO DAILY [facility] Last Admin: 05/26/19 09:33 Dose: 81 mg Atorvastatin Calcium (Lipitor -) 80 mg PO [facility] Heparin Sodium (Porcine) (Heparin -) 5,000 unit SQ BID [facility] Last Admin: 05/26/19 09:33 Dose: 5,000 unit Sodium Chloride (Normal Saline -) 1,000 mls @ 100 mls/hr IV ASDIR [facility] Last Admin: 05/26/19 15:40 Dose: 100 mls/hr Metoprolol Tartrate (Lopressor -) 50 mg PO BID [facility] Home Medications Medication Instructions Recorded Fluticasone/Salmeterol [Advair 2 inh IN DAILY PRN 02/01/19 250-50 Diskus] Metoprolol Tartrate [Lopressor] 50 mg PO BID 02/01/19 Montelukast Sodium [Singulair] 10 mg PO DAILY PRN 02/01/19 Sitagliptin Phosphate [Januvia] 50 mg PO DAILY 02/01/19 Valsartan/Hydrochlorothiazide 1 tab PO DAILY 02/01/19 [Valsartan-Hctz 320-12.5 mg Tab] Ipratropium/Albuterol Sulfate 1 inh IH QID 02/03/19 [Combivent Respimat 20-100 Mcg] Aspirin Coated [Ecotrin -] 81 mg PO DAILY 30 Days #30 02/04/19 tablet.ec Atorvastatin Ca [Lipitor] 80 mg PO HS 30 Days #30 tablet 02/04/19 ASSESSMENT/PLAN: 69 y/o man with a PMHx of CVA (right sided residual), HTN, HLD, IDDM, Asthma, CKD (baseline cre around 1.9) admitted from Dr. Mosqueda's office for elevated cre 2/2 to CKD and for CTA and hydration prior to carotid endarterectomy. #Elevated Cre 2/2 to CKD Cre at baseline IVF at 100 Renal US 01/2019- normal kidneys. no evidence of hydronephrosis or acute pathology #Severe stenosis of Left carotid artery 80-99% CTA ordered IV hydration Discussed with Dr. Mosqueda for likely procedure Will f/u #DM BGM ISS #HTN Lopressor 50 BID #HLD ASA, Lipitor #DVT ppx Heparin FEN Dm/Na controlled diet IVF monitor lytes Dispo: f/u with vascular in the am, CTA neck f/u Visit type - Emergency Visit Emergency Visit: Yes ED Registration Date: 05/25/19 Care time: The patient presented to the Emergency Department on the above date and was hospitalized for further evaluation of their emergent condition. - New Patient This patient is new to me today: Yes Date on this admission: 05/27/19 - Critical Care Critical Care patient: No - Discharge Referral Referred to [facility] Med P.C.: No ATTENDING PHYSICIAN STATEMENT I saw and evaluated the patient. I reviewed the resident's note and discussed the case with the resident. I agree with the resident's findings and plan as documented. SUBJECTIVE: OBJECTIVE: ASSESSMENT AND PLAN:
--- NOTE | 2019-05-26 18:22 | PN ---
Progress Note (short form) - Note Progress Note: Vascular Surgery Pt seen and examined with . Pt with carotid artery stenosis on CTA months ago. Read with thrombus by radiology, and wanted to repeat it prior to open CEA. CReatine as outpt came back as 1.7. Sent in by PMD for hydration. Depending on what we find on CTA, pt will either need carotid artery stent vs open CEA. Pt getting hydration, willl repeat Creatinine in am Sami Mosqueda DO
--- NOTE | 2019-05-26 20:00 | CONSULT ---
Consult Consult Specialty:: Nephrology Reason for Consultation:: CKD - History of Present Illness Chief Complaint: sent on for hydration before ct scan History of Present Illness: Pt is a 69 year old male with pmhx of cva with right side residual weakness, htn , hld, dm and asthma who was sent in for hydration before ct angio. He has history of CKD and follows with Dr Blakely. He denies shortness of breath or lower ext edema. He is awake and alert. He denies nsaid use. He denies hematuria or dysuria. - History Source History Provided By: Patient, Medical Record - Past Medical History INFORMATICA ARCHITECT: Yes: CVA Cardio/Vascular: Yes: HTN, Hyperlipdemia Pulmonary: Yes: Asthma Renal/: Yes: Renal Inusuff Endocrine: Yes: Diabetes Mellitus - Alcohol/Substance Use Hx Alcohol Use: No History of Substance Use: reports: None - Smoking History Smoking history: Never smoked Have you smoked in the past 12 months: No - Social History ADL: Family Assistance History of Recent Travel: No Home Medications - Allergies Allergies/Adverse Reactions: Allergies Allergy/AdvReac Type Severity Reaction Status Date / Time No Known Allergies Allergy Verified 05/25/19 18:07 - Home Medications Home Medications: Ambulatory Orders Fluticasone/Salmeterol [Advair 250-50 Diskus] 2 inh IN DAILY PRN 02/01/19 Metoprolol Tartrate [Lopressor] 50 mg PO BID 02/01/19 Montelukast Sodium [Singulair] 10 mg PO DAILY PRN 02/01/19 Sitagliptin Phosphate [Januvia] 50 mg PO DAILY 02/01/19 Valsartan/Hydrochlorothiazide [Valsartan-Hctz 320-12.5 mg Tab] 1 tab PO DAILY Ipratropium/Albuterol Sulfate [Combivent Respimat 20-100 Mcg] 1 inh IH QID 02/03 Aspirin Coated [Ecotrin -] 81 mg PO DAILY 30 Days #30 tablet.ec 02/04/19 Atorvastatin Ca [Lipitor] 80 mg PO HS 30 Days #30 tablet 02/04/19 Family Medical History Family History: Denies Review of Systems - Review of Systems Constitutional: reports: No Symptoms Eyes: reports: No Symptoms HENT: reports: No Symptoms Neck: reports: No Symptoms Cardiovascular: reports: No Symptoms Respiratory: reports: No Symptoms Gastrointestinal: reports: No Symptoms Genitourinary: reports: No Symptoms Musculoskeletal: reports: No Symptoms Integumentary: reports: No Symptoms Neurological: reports: No Symptoms Endocrine: reports: No Symptoms Hematology/Lymphatic: reports: No Symptoms Psychiatric: reports: No Symptoms Physical Exam Vital Signs: Vital Signs Temperature 98.2 F 05/26/19 16:20 Pulse Rate 65 05/26/19 16:20 Respiratory Rate 20 05/26/19 16:20 Blood Pressure 165/83 05/26/19 16:20 O2 Sat by Pulse Oximetry (%) 97 05/26/19 09:00 Constitutional: Yes: Calm Eyes: Yes: Conjunctiva Clear HENT: Yes: Atraumatic Cardiovascular: Yes: S1, S2 Respiratory: Yes: CTA Bilaterally Gastrointestinal: Yes: Soft Musculoskeletal: Yes: WNL Edema: No Neurological: Yes: Oriented Psychiatric: Yes: Oriented Labs: CBC, BMP 05/26/19 07:08 05/26/19 07:08 Laboratory Tests 02/01/19 02/02/19 02/02/19 17:20 12:28 14:20 Creatinine 2.0 H 1.8 H 1.7 H 05/01/19 05/25/19 05/26/19 13:35 18:19 07:08 Creatinine 1.7 H 1.9 H 1.7 H Imaging - Results Chest X-ray: Report Reviewed Problem List - Problems (1) CKD (chronic kidney disease) Code(s): N18.9 - CHRONIC KIDNEY DISEASE, UNSPECIFIED (2) CVA (cerebral vascular accident) Code(s): I63.9 - CEREBRAL INFARCTION, UNSPECIFIED Assessment/Plan Current Medications Generic Name Dose Route Start Last Admin Trade Name Freq PRN Reason Stop Dose Admin Albuterol/Ipratropium 1 amp 05/26/19 04:47 05/26/19 15:45 Duoneb - NEB 05/27/19 06:00 1 amp Q4H PRN Administration WHEEZING Amlodipine Besylate 5 mg 05/26/19 10:00 05/26/19 09:33 Norvasc - PO 5 mg DAILY [facility] Administration Aspirin 81 mg 05/26/19 10:00 05/26/19 09:33 Asa - PO 81 mg DAILY [facility] Administration Atorvastatin Calcium 80 mg 05/26/19 22:00 Lipitor - PO HS [facility] Heparin Sodium (Porcine) 5,000 unit 05/26/19 10:00 05/26/19 09:33 Heparin - SQ 5,000 unit BID [facility] Administration Sodium Chloride 1,000 mls @ 100 mls/hr 05/26/19 12:08 05/26/19 15:40 Normal Saline - IV 100 mls/hr ASDIR [facility] Administration Metoprolol Tartrate 50 mg 05/26/19 22:00 Lopressor - PO BID [facility] Coverage for Dr De La Paz. Impression 1. CKD 2. CVA 3. HTN 4. DM 5. 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
[2019-05-26] MEDS: ATORVASTATIN CA 80 MG TABLET (FP) PO SCH (21:09)
[2019-05-26] MEDS: ACETYLCYSTEINE 20% 200MG/ML 4 ML VIAL *FOR ORAL / INH USE ONLY PO SCH (21:10)
[2019-05-26] MEDS ORDERED: ATORVASTATIN CA 80 MG TABLET (FP) PO SCH (22:00)
[2019-05-27] MEDS: SODIUM CHLORIDE 1,000 ML IV SCH ×3 (01:41→22:42)
--- NOTE | 2019-05-27 07:39 | PN ---
Progress Note (short form) - Note Progress Note: Patient still awaiting CTA Surgery to follow
[2019-05-27 09:26] LABS: HEMATOCRIT 37.6 % (35.4-49); HEMOGLOBIN 12.3 GM/dL (11.7-16.9); MCH 27.1 pg (25.7-33.7); MCHC 32.6 g/dl (32.0-35.9); MEAN CELL VOLUME 83.2 fl (80-96); MEAN PLT VOLUME 10.3 fl (7.5-11.1); PLATELET COUNT 162 K/MM3 (134-434); RBC 4.53 M/mm3 (4.00-5.60); RDW 15.1 % (11.9-15.9); WHITE BLOOD COUNT 9.2 K/mm3 (4.0-10.0)
[2019-05-27] MEDS ORDERED: PATIENT'S OWN MEDICATION (NON-FORMULARY) (Valsartan/Hydrochlorothiazide [Valsartan-Hctz 32 PO SCH (10:00)
[2019-05-27] MEDS: ASPIRIN 81 MG CHEWABLE TABLETS PO SCH ×2 (10:27→12:01)
[2019-05-27 10:28] LABS: BILIRUBIN,TOTAL 0.4 mg/dL (0.2-1); BLOOD UREA NITROGEN 15.1 mg/dL (7-18); CALCIUM 8.8 mg/dL (8.5-10.1); CREATININE 1.5 mg/dL (0.55-1.3); POTASSIUM 3.8 mmol/L (3.5-5.1); TOT PROT 5.9 g/dl (6.4-8.2)
[2019-05-27] MEDS: amLODIPine BESYLATE 5 MG TABLET (FP) PO SCH (10:28)
[2019-05-27] MEDS: METOPROLOL TARTRATE 50 MG TABLET (FP) PO SCH ×2 (10:28→21:09)
[2019-05-27] MEDS: HEPARIN NA (PORCINE) 5,000 UNITS/ML 1ML VIAL SQ SCH ×2 (10:58→21:09)
--- NOTE | 2019-05-27 11:10 | PN ---
Teaching Attending Note Name of Resident: Joao Ferrari ATTENDING PHYSICIAN STATEMENT I saw and evaluated the patient. I reviewed the resident's note and discussed the case with the resident. I agree with the resident's findings and plan as documented. Seen and examined; please see resident note for further historical information. I personally verified all pena historical information and exam findings. Personally interpreted all imaging and diagnostics and reviewed appropriate consults. I reviewed all labs and vital signs as per resident note and EMR as documented. I agree with the above assessment and plan unless supplemented by myself in the following. Seen and examined, no new complaints. Creatinine 1.5 this morning. Will obtain CTA as per vascular surgery service and potentially pursue inpatient procedure 10 item review of systems completed and is negative aside from as discussed in the subjective data in my own/the resident documentation. VS, labs, imaging reviewed NAD, AAO, resting comfortably in bed. RRR s1/2 no mgr Normal muscle tone, moves all 5 extremities with normal apparent strength Neck is supple, trachea midline, no epi LN Lungs CTAB with sym expansion NT ND +BS no epi organomegaly CN2-12 wnl; no FND NC AT EOMI PERRLA Normal mood, appropriate behavior, euthymic affect No skin breakdown or rashes noted Assessment and plan: Carotid artery stenosis with potential clot, patient requires additional imaging to determine whether stenting versus open CEA. Imaging pending. Discussed with nephrology CKD, creatinine at baseline, Mucomyst, management per nephrology. History of hypertension, continue home medications, controlled History of hyperlipidemia, continue home medications, controlled History of diabetes mellitus, continue insulin coverage with sliding scale. 130 this morning. Overweight, BMI 29. History of asthma, no current exacerbation Continue to hold valsartan/HCTZ as well as spironolactone; Mucomyst and IVF as per nephrology. Monitor on the floor on the medicine service.
--- NOTE | 2019-05-27 11:52 | PN ---
Physical Exam: SUBJECTIVE: Patient seen and examined. Pt has no c/o overnight or issues. Pt reports no fever or chills. Asymptomatic and afebrile. Denies f/c/n/v/d/sob, cp OBJECTIVE: Vital Signs Period Temp Pulse Resp BP Sys/Cordero Pulse Ox Last 24 Hr 97.9 F-98.2 F 61-69 15-20 144-165/72-83 96 GENERAL: The patient is awake, alert, and fully oriented, in no acute distress. EYES: PERRL, extraocular movements intact, sclera anicteric, conjunctiva clear. No ptosis. ENT: oropharynx clear without exudates, moist mucous membranes. LUNGS: Breath sounds equal, clear to auscultation bilaterally, no wheezes, no crackles, HEART: Regular rate and rhythm, S1, S2 without murmur, rub or gallop. ABDOMEN: Soft, nontender, nondistended, normoactive bowel sounds, no guarding, EXTREMITIES: 2+ pulses, warm, well-perfused, no edema. NEUROLOGICAL: Cranial nerves II through XII grossly intact. . SKIN: Warm, dry, normal turgor, no rashes or lesions noted Laboratory Results - last 24 hr 05/27/19 05/27/19 08:38 08:38 WBC 9.2 RBC 4.53 Hgb 12.3 Hct 37.6 MCV 83.2 MCH 27.1 MCHC 32.6 RDW 15.1 Plt Count 162 MPV 10.3 Sodium 142 Potassium 3.8 Chloride 110 H Carbon Dioxide 27 Anion Gap 6 L BUN 15.1 Creatinine 1.5 H Est GFR (CKD-EPI)AfAm 54.66 Est GFR (CKD-EPI)NonAf 47.16 Random Glucose 130 H Calcium 8.8 Total Bilirubin 0.4 AST 21 ALT 48 Alkaline Phosphatase 83 Total Protein 5.9 L Albumin 3.0 L Active Medications Generic Name Dose Route Start Last Admin Trade Name Freq PRN Reason Stop Dose Admin Acetylcysteine 1,200 mg 05/26/19 20:15 05/26/19 21:10 Mucomyst 20 Oral / Inh Use Only* PO 05/28/19 08:16 1,200 mg Q12H [facility] Administration Amlodipine Besylate 5 mg 05/26/19 10:00 05/27/19 10:28 Norvasc - PO 5 mg DAILY [facility] Administration Aspirin 81 mg 05/26/19 10:00 05/26/19 09:33 Asa - PO 81 mg DAILY [facility] Administration Atorvastatin Calcium 80 mg 05/26/19 22:00 05/26/19 21:09 Lipitor - PO 80 mg HS [facility] Administration Heparin Sodium (Porcine) 5,000 unit 05/26/19 10:00 05/27/19 10:58 Heparin - SQ 5,000 unit BID [facility] Administration Sodium Chloride 1,000 mls @ 100 mls/hr 05/26/19 12:08 05/27/19 01:41 Normal Saline - IV 100 mls/hr ASDIR [facility] Administration Metoprolol Tartrate 50 mg 05/26/19 22:00 05/27/19 10:28 Lopressor - PO 50 mg BID [facility] Administration ASSESSMENT/PLAN: 69 y/o man with a PMHx of CVA (right sided residual), HTN, HLD, IDDM, Asthma, CKD (baseline cre around 1.9) admitted from Dr. Mosqueda's office for elevated cre 2/2 to CKD and for CTA and hydration prior to carotid endarterectomy. #Elevated Cre 2/2 to CKD Cre at baseline today 1.5 CTA today- pending- Discussed with pt the benefits and risks of undergoing contrast CT in regards to Contrast induced nephropathy Pt verifies understanding as he had discussed it with Dr. Mosqueda and Dr. Mott #Severe stenosis of Left carotid artery 80-99% CTA ordered to determine placement of Stent vs CEA IV hydration Discussed with Dr. Mosqueda for likely procedure Will f/u #DM BGM ISS #HTN Lopressor 50 BID Hold ARBs, Diuretics #HLD ASA, Lipitor #DVT ppx Heparin FEN Dm/Na controlled diet IVF at 100 monitor lytes Dispo: f/u with vascular in the am, CTA neck f/u Visit type - Emergency Visit Emergency Visit: Yes ED Registration Date: 05/25/19 Care time: The patient presented to the Emergency Department on the above date and was hospitalized for further evaluation of their emergent condition. - New Patient This patient is new to me today: Yes Date on this admission: 05/27/19 - Critical Care Critical Care patient: No - Discharge Referral Referred to [facility] Med P.C.: No ATTENDING PHYSICIAN STATEMENT I saw and evaluated the patient. I reviewed the resident's note and discussed the case with the resident. I agree with the resident's findings and plan as documented. SUBJECTIVE: OBJECTIVE: ASSESSMENT AND PLAN:
[2019-05-27] MEDS: ACETYLCYSTEINE 20% 200MG/ML 4 ML VIAL *FOR ORAL / INH USE ONLY PO SCH (14:09)
--- NOTE | 2019-05-27 15:48 | PN ---
Progress Note (short form) - Note Progress Note: Renal follow up for CKD Seen and examined at the bedside no acute complaints s/p CTA of the neck making urine no cp, sob, fever, chills Vital Signs Temperature 98 F 05/27/19 14:00 Pulse Rate 72 05/27/19 14:00 Respiratory Rate 20 05/27/19 14:00 Blood Pressure 155/76 05/27/19 14:00 O2 Sat by Pulse Oximetry (%) 96 05/26/19 21:00 Intake & Output 05/24/19 05/25/19 05/26/19 05/27/19 23:59 23:59 23:59 23:59 Intake Total 1550 Output Total 500 350 Balance 1050 -350 Weight 84.822 kg 83.915 kg NAD awake and alert neck supple RRR CTA soft NT/ND no LE edema CBC, BMP 05/27/19 08:38 05/27/19 08:38 Current Medications Acetylcysteine (Mucomyst 20 Oral / Inh Use Only*) 1,200 mg PO Q12H [facility] Stop: 05/28/19 08:16 Last Admin: 05/27/19 14:09 Dose: Not Given Amlodipine Besylate (Norvasc -) 5 mg PO DAILY [facility] Last Admin: 05/27/19 10:28 Dose: 5 mg Aspirin (Asa -) 81 mg PO DAILY [facility] Last Admin: 05/27/19 12:01 Dose: Not Given Atorvastatin Calcium (Lipitor -) 80 mg PO HS [facility] Last Admin: 05/26/19 21:09 Dose: 80 mg Heparin Sodium (Porcine) (Heparin -) 5,000 unit SQ BID [facility] Last Admin: 05/27/19 10:58 Dose: 5,000 unit Sodium Chloride (Normal Saline -) 1,000 mls @ 100 mls/hr IV ASDIR [facility] Last Admin: 05/27/19 01:41 Dose: 100 mls/hr Metoprolol Tartrate (Lopressor -) 50 mg PO BID [facility] Last Admin: 05/27/19 10:28 Dose: 50 mg 69 year old male with pmhx of cva with right side residual weakness, htn, hld, dm and asthma who was sent in for hydration before ct angio. 1. CKD stage 3a 2. Contrast nephropathy prophylaxis 3. Carotid artery disease 4. Hypertension 5. DM Renal function stable continue IVF x 6 hours after contast exposure Trend renal function and electrolytes Vascular surgery follow up Bertrand De La Paz DO
[2019-05-27] MEDS: ATORVASTATIN CA 80 MG TABLET (FP) PO SCH (21:10)
[2019-05-27] MEDS ORDERED: ALBUTEROL SO4 2.5/IPRATROPIUM 0.5 INH SOL 3 ML VIAL.NEB. NEB PRN (23:35)
[2019-05-28 07:52] LABS: HEMATOCRIT 35.6 % (35.4-49); HEMOGLOBIN 11.7 GM/dL (11.7-16.9); MCH 26.9 pg (25.7-33.7); MCHC 32.8 g/dl (32.0-35.9); MEAN PLT VOLUME 9.9 fl (7.5-11.1); PLATELET COUNT 154 K/MM3 (134-434); RBC 4.34 M/mm3 (4.00-5.60); WHITE BLOOD COUNT 9.3 K/mm3 (4.0-10.0)
--- NOTE | 2019-05-28 08:05 | PN ---
Progress Note (short form) - Note Progress Note: VASCULAR SURGERY 69 yo male w/ carotid artery stenosis identified on CTA months ago. (also found thrombus as per Radiology). Patient needs a repeat CTA to help establish an operative plan (carotid stent vs. open CEA) BUN/Cr Trend 05/25/19 05/26/19 05/27/19 05/28/19 18:19 07:08 08:38 07:18 BUN 22.7 H 19.3 H 15.1 P Creatinine 1.9 H 1.7 H 1.5 H P Problem List - Problems (1) Carotid artery stenosis Assessment/Plan: - f/u BMP - Medical optimization - Neck CTA done and awaiting official read Code(s): I65.29 - OCCLUSION AND STENOSIS OF UNSPECIFIED CAROTID ARTERY (2) CKD (chronic kidney disease) Code(s): N18.9 - CHRONIC KIDNEY DISEASE, UNSPECIFIED (3) Diabetes mellitus Code(s): E11.9 - TYPE 2 DIABETES MELLITUS WITHOUT COMPLICATIONS
[2019-05-28 08:23] LABS: ALBUMIN 2.9 g/dl (3.4-5.0); BILIRUBIN,TOTAL 0.5 mg/dL (0.2-1); BLOOD UREA NITROGEN 13.6 mg/dL (7-18); CALCIUM 9.1 mg/dL (8.5-10.1); CREATININE 1.5 mg/dL (0.55-1.3); POTASSIUM 3.8 mmol/L (3.5-5.1); TOT PROT 5.8 g/dl (6.4-8.2)
[2019-05-28] MEDS: ASPIRIN 81 MG CHEWABLE TABLETS PO SCH (09:55)
[2019-05-28] MEDS: METOPROLOL TARTRATE 50 MG TABLET (FP) PO SCH ×2 (09:56→22:28)
[2019-05-28] MEDS: amLODIPine BESYLATE 5 MG TABLET (FP) PO SCH (09:56)
--- NOTE | 2019-05-28 12:41 | PN ---
Physical Exam: SUBJECTIVE: Patient seen and examined. Pt has no c/o overnight or issues. Pt reports no fever or chills. Asymptomatic and afebrile. Denies f/c/n/v/d/sob, cp OBJECTIVE: Vital Signs Period Temp Pulse Resp BP Sys/Cordero Pulse Ox Last 24 Hr 97.9 F-98.8 F 59-72 18-20 149-166/72-86 99 GENERAL: The patient is awake, alert, and fully oriented, in no acute distress. EYES: PERRL, extraocular movements intact, sclera anicteric, conjunctiva clear. No ptosis. ENT: oropharynx clear without exudates, moist mucous membranes. LUNGS: Breath sounds equal, clear to auscultation bilaterally, no wheezes, no crackles, HEART: Regular rate and rhythm, S1, S2 without murmur, rub or gallop. ABDOMEN: Soft, nontender, nondistended, normoactive bowel sounds, no guarding, EXTREMITIES: 2+ pulses, warm, well-perfused, no edema. NEUROLOGICAL: Cranial nerves II through XII grossly intact. . SKIN: Warm, dry, normal turgor, no rashes or lesions noted Laboratory Results - last 24 hr 05/28/19 05/28/19 07:18 07:18 WBC 9.3 RBC 4.34 Hgb 11.7 Hct 35.6 MCV 82.0 MCH 26.9 MCHC 32.8 RDW 15.0 Plt Count 154 MPV 9.9 Sodium 142 Potassium 3.8 Chloride 112 H Carbon Dioxide 26 Anion Gap 4 L BUN 13.6 Creatinine 1.5 H Est GFR (CKD-EPI)AfAm 54.66 Est GFR (CKD-EPI)NonAf 47.16 Random Glucose 115 H Calcium 9.1 Total Bilirubin 0.5 AST 23 ALT 52 Alkaline Phosphatase 82 Total Protein 5.8 L Albumin 2.9 L Active Medications Generic Name Dose Route Start Last Admin Trade Name Freq PRN Reason Stop Dose Admin Albuterol/Ipratropium 1 amp 05/27/19 23:35 05/28/19 00:02 Duoneb - NEB 1 amp Q4H PRN Administration SHORTNESS OF BREATH Amlodipine Besylate 5 mg 05/26/19 10:00 05/28/19 09:56 Norvasc - PO 5 mg DAILY [facility] Administration Aspirin 81 mg 05/26/19 10:00 05/28/19 09:55 Asa - PO Not Given DAILY [facility] Atorvastatin Calcium 80 mg 05/26/19 22:00 05/27/19 21:10 Lipitor - PO 80 mg HS [facility] Administration Heparin Sodium (Porcine) 5,000 unit 05/28/19 14:00 Heparin - SQ TID [facility] Metoprolol Tartrate 50 mg 05/26/19 22:00 05/28/19 09:56 Lopressor - PO 50 mg BID [facility] Administration ASSESSMENT/PLAN: 69 y/o man with a PMHx of CVA (right sided residual), HTN, HLD, IDDM, Asthma, CKD (baseline cre around 1.9) admitted from Dr. Mosqueda's office for elevated cre 2/2 to CKD and for CTA and hydration prior to carotid endarterectomy. #Elevated Cre 2/2 to CKD Cre at baseline today 1.[address] Mosqueda- pt will get procedure outpt, pending further recommendations CTA today-small plaque w/ calcification of the RCA bifurcation w/out evidence of HD significant stenosis, Calcified plaque at the LCC bifurcation/origin of the ICA w/ total occlusion. 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 Pt verifies understanding as he had discussed it with Dr. Mosqueda and Dr. Mott #Severe stenosis of Left carotid artery 80-99% IV hydration Will f/u #DM BGM ISS #HTN Lopressor 50 BID Norvasc 5 Hold ARBs, Diuretics #HLD ASA, Lipitor #DVT ppx Heparin FEN Dm/Na controlled diet IVF at 100 monitor lytes Dispo: f/u with vascular, likely d/c today Visit type - Emergency Visit Emergency Visit: Yes ED Registration Date: 05/25/19 Care time: The patient presented to the Emergency Department on the above date and was hospitalized for further evaluation of their emergent condition. - New Patient This patient is new to me today: Yes Date on this admission: 05/28/19 - Critical Care Critical Care patient: No - Discharge Referral Referred to [facility] Med P.C.: No ATTENDING PHYSICIAN STATEMENT I saw and evaluated the patient. I reviewed the resident's note and discussed the case with the resident. I agree with the resident's findings and plan as documented. SUBJECTIVE: OBJECTIVE: ASSESSMENT AND PLAN:
--- NOTE | 2019-05-28 12:43 | PN ---
Teaching Attending Note Name of Resident: Joao Ferrari ATTENDING PHYSICIAN STATEMENT I saw and evaluated the patient. I reviewed the resident's note and discussed the case with the resident. I agree with the resident's findings and plan as documented. Seen and examined; please see resident note for further historical information. I personally verified all pena historical information and exam findings. Personally interpreted all imaging and diagnostics and reviewed appropriate consults. I reviewed all labs and vital signs as per resident note and EMR as documented. I agree with the above assessment and plan unless supplemented by myself in the following. 10 item review of systems completed and is negative aside from as discussed in the subjective data in my own/the resident documentation. VS, labs, imaging reviewed NAD, AAO, resting comfortably in bed. RRR s1/2 no mgr Normal muscle tone, moves all 5 extremities with normal apparent strength Neck is supple, trachea midline, no epi LN Lungs CTAB with sym expansion NT ND +BS no epi organomegaly CN2-12 wnl; no FND NC AT EOMI PERRLA Normal mood, appropriate behavior, euthymic affect No skin breakdown or rashes noted Assessment and plan: Informed that he wouldn't need the CEA inpatient. Will followup outpatient.
[2019-05-28] MEDS: HEPARIN NA (PORCINE) 5,000 UNITS/ML 1ML VIAL SQ SCH ×2 (14:02→22:28)
--- NOTE | 2019-05-28 14:44 | PN ---
Progress Note (short form) - Note Progress Note: Renal follow up for CKD Seen and examined at the bedside no complaints no sob, cp, abd pain, fever, chills, leg swelling Vital Signs Temperature 98.8 F 05/28/19 10:00 Pulse Rate 62 05/28/19 10:00 Respiratory Rate 18 05/28/19 10:00 Blood Pressure 154/76 05/28/19 10:00 O2 Sat by Pulse Oximetry (%) 99 05/27/19 21:00 Intake & Output 05/25/19 05/26/19 05/27/19 05/28/19 23:59 23:59 23:59 23:59 Intake Total 1550 1280 800 Output Total 500 950 Balance 1050 330 800 Weight 84.822 kg 83.915 kg NAD awake and alert neck supple RRR CTA soft NT/ND no LE edema CBC, BMP 05/28/19 07:18 05/28/19 07:18 Current Medications Albuterol/Ipratropium (Duoneb -) 1 amp NEB Q4H PRN PRN Reason: SHORTNESS OF BREATH Last Admin: 05/28/19 00:02 Dose: 1 amp Amlodipine Besylate (Norvasc -) 5 mg PO DAILY [facility] Last Admin: 05/28/19 09:56 Dose: 5 mg Aspirin (Asa -) 81 mg PO DAILY [facility] Last Admin: 05/28/19 09:55 Dose: Not Given Atorvastatin Calcium (Lipitor -) 80 mg PO HS [facility] Last Admin: 05/27/19 21:10 Dose: 80 mg Heparin Sodium (Porcine) (Heparin -) 5,000 unit SQ TID [facility] Last Admin: 05/28/19 14:02 Dose: 5,000 unit Metoprolol Tartrate (Lopressor -) 50 mg PO BID [facility] Last Admin: 05/28/19 09:56 Dose: 50 mg 69 year old male with pmhx of cva with right side residual weakness, htn, hld, dm and asthma who was sent in for hydration before ct angio. 1. CKD stage 3a 2. Contrast nephropathy prophylaxis 3. Carotid artery disease 4. Hypertension 5. DM Renal function stable can discontinue IVF discharge planning as per primary team. Will need to follow up with Dr. Blakely. pt is is staying overnight, can check BMP in the / Bertrand Brain KRAMER
[2019-05-28] MEDS ORDERED: amLODIPine BESYLATE 5 MG TABLET (FP) PO ONE (15:49)
--- NOTE | 2019-05-28 17:24 | PN ---
Progress Note (short form) - Note Progress Note: VAscular surgery Pt seen and examined. CTA done -- shows left ICA occlusion. No need for surgery. Pt needs medical management. Will follow up with Dr. Arnold - his PMD Sami Mosqueda DO
[2019-05-28] MEDS ORDERED: VALSARTAN 160 MG TABLET (UD) PO ONE (17:37)
[2019-05-28] MEDS: ACETYLCYSTEINE 20% 200MG/ML 4 ML VIAL *FOR ORAL / INH USE ONLY PO SCH (18:20)
[2019-05-28] MEDS: ATORVASTATIN CA 80 MG TABLET (FP) PO SCH (22:28)
[2019-05-29] MEDS: HEPARIN NA (PORCINE) 5,000 UNITS/ML 1ML VIAL SQ SCH (06:09)
[2019-05-29 06:59] VITALS: BP 148/84; PULSE 64; TEMP 98.5
[2019-05-29] MEDS ORDERED: amLODIPine BESYLATE 10 MG TABLET (FP) PO SCH (07:29)
[2019-05-29 08:09] LABS: HEMATOCRIT 36.7 % (35.4-49); HEMOGLOBIN 12.1 GM/dL (11.7-16.9); MCH 27.1 pg (25.7-33.7); MCHC 33.1 g/dl (32.0-35.9); MEAN PLT VOLUME 10.5 fl (7.5-11.1); PLATELET COUNT 159 K/MM3 (134-434); RBC 4.48 M/mm3 (4.00-5.60); RDW 14.8 % (11.9-15.9); WHITE BLOOD COUNT 9.5 K/mm3 (4.0-10.0)
[2019-05-29 08:33] LABS: BILIRUBIN,TOTAL 0.7 mg/dL (0.2-1); BLOOD UREA NITROGEN 15.3 mg/dL (7-18); CREATININE 1.4 mg/dL (0.55-1.3); PHOSPHOROUS 3.2 mg/dL (2.5-4.9); POTASSIUM 3.9 mmol/L (3.5-5.1); TOT PROT 6.3 g/dl (6.4-8.2)
--- NOTE | 2019-05-29 09:15 | DS ---
Physical Exam: SUBJECTIVE: Patient seen and examined. Pt has no c/o overnight or issues. Pt reports no fever or chills. Asymptomatic and afebrile. Denies f/c/n/v/d/sob, cp OBJECTIVE: Vital Signs Period Temp Pulse Resp BP Sys/Cordero Pulse Ox Last 24 Hr 98.0 F-98.8 F 62-74 18-20 143-176/74-94 98 PHYSICAL EXAM GENERAL: The patient is awake, alert, and fully oriented, in no acute distress. EYES: PERRL, extraocular movements intact, sclera anicteric, conjunctiva clear. No ptosis. ENT: oropharynx clear without exudates, moist mucous membranes. LUNGS: Breath sounds equal, clear to auscultation bilaterally, no wheezes, no crackles, HEART: Regular rate and rhythm, S1, S2 without murmur, rub or gallop. ABDOMEN: Soft, nontender, nondistended, normoactive bowel sounds, no guarding, EXTREMITIES: 2+ pulses, warm, well-perfused, no edema. NEUROLOGICAL: Cranial nerves II through XII grossly intact. . SKIN: Warm, dry, normal turgor, no rashes or lesions noted LABS Laboratory Results - last 24 hr 05/28/19 05/29/19 05/29/19 11:30 06:30 06:30 WBC 9.5 RBC 4.48 Hgb 12.1 Hct 36.7 MCV 82.0 MCH 27.1 MCHC 33.1 RDW 14.8 Plt Count 159 MPV 10.5 Sodium 141 Potassium 3.9 Chloride 109 H Carbon Dioxide 26 Anion Gap 6 L BUN 15.3 Creatinine 1.4 H Est GFR (CKD-EPI)AfAm 59.41 Est GFR (CKD-EPI)NonAf 51.26 Random Glucose 89 Calcium 9.0 Phosphorus 3.2 Total Bilirubin 0.7 AST 22 ALT 52 Alkaline Phosphatase 79 Total Protein 6.3 L Albumin 3.0 L Blood Type B POSITIVE Antibody Screen Negative Home Medications Medication Instructions Recorded Fluticasone/Salmeterol [Advair 2 inh IN DAILY PRN 02/01/19 250-50 Diskus] Metoprolol Tartrate [Lopressor] 50 mg PO BID 02/01/19 Montelukast Sodium [Singulair] 10 mg PO DAILY PRN 02/01/19 Sitagliptin Phosphate [Januvia] 50 mg PO DAILY 02/01/19 Valsartan/Hydrochlorothiazide 1 tab PO DAILY 02/01/19 [Valsartan-Hctz 320-12.5 mg Tab] Ipratropium/Albuterol Sulfate 1 inh IH QID 02/03/19 [Combivent Respimat 20-100 Mcg] Aspirin Coated [Ecotrin -] 81 mg PO DAILY 30 Days #30 02/04/19 tablet.ec Atorvastatin Ca [Lipitor] 80 mg PO HS 30 Days #30 tablet 02/04/19 Amlodipine Besylate 10 mg PO DAILY #30 tablet 05/28/19 Valsartan 320 mg PO DAILY #30 tablet 05/28/19 HOSPITAL COURSE: Date of Admission:05/25/19 69 y/o man with a PMHx of CVA (right sided residual), HTN, HLD, IDDM, Asthma, CKD (baseline cre around 1.9) admitted from Dr. Mosqueda's office for elevated cre 2/2 to CKD and for CTA and hydration prior to carotid endarterectomy. Pt was found to have a Cre of 1.9 on arrival. Pt was sent over from his vascular clinic , Dr. Mosqueda for medical clearance and a CTA to determine the course of treatment CEA vs Stenting. We started IV hydration and pt's cre stabilized to his baseline- Cre 1.5. His CTA showed small plaque w/ calcification of the RCA bifurcation w/out evidence of HD significant stenosis, Calcified plaque at the LCC bifurcation/origin of the ICA w/ total occlusion. 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 We discussed with Dr. Mosqueda, and he recommended procedure to be done electively and pt was discharged home on his home meds. EKG: sinus kaya CXR: no acute findings CTA-small plaque w/ calcification of the RCA bifurcation w/out evidence of HD significant stenosis, Calcified plaque at the LCC bifurcation/origin of the ICA w/ total occlusion. 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 Pt verifies understanding as he had discussed it with Dr. Mosqueda and Dr. Mott Date of Discharge: 05/29/19 Minutes to complete discharge: 40 Discharge Summary Problems reviewed: Yes Reason For Visit: ELEVATED CREATINE KINASE LEVEL Condition: Good - Instructions Diet, Activity, Other Instructions: You were admitted to the hospital for an abnormal kidney function and for a procedure. While in the hospital, we evaluated you with lab work, blood work, imaging including a CAT scan w/ Angiogram of your carotid arteries. We found you had an abnormal kidney function or elevated creatinine level in your blood for which we treated you with medications. We also found that there is an occlusion in your carotid arteries, for which you will undergo an elective surgery as discussed by your surgeon. We also made some adjustments to your medications Please STOP taking Valsartan/Hydrochlorothiazide Please STOP taking Spironolactone Please START taking Norvasc (Amlodipine) 10 mg daily Please START taking Valsartan 320 mg Daily Please take all your other medications as prescribed Please follow up with your vascular surgeon, Dr. Sami Mosqueda, within 1 week Please follow up with your Bark Spudder within 1 week, if you don't have one, we have provided information for our Bark Spudder, Bertrand Elkins. Please follow up with your primary care physician Dr. Arnold within 1 week Please return to your occupational/physical therapy as scheduled Return to the emergency room, if you experience any worsening of your condition , chest pain, neck pain, headaches or any worsening of your condition. Referrals: Sami Mosqueda DO [Staff Physician] - 1 Week Vega Arnold Jr [Primary Care Provider] - 1 Week Bertrand De La Paz MD [Staff Physician] - 1 Week Disposition: HOME - Home Medications Comprehensive Discharge Medication List: Ambulatory Orders Fluticasone/Salmeterol [Advair 250-50 Diskus] 2 inh IN DAILY PRN 02/01/19 Metoprolol Tartrate [Lopressor] 50 mg PO BID 02/01/19 Montelukast Sodium [Singulair] 10 mg PO DAILY PRN 02/01/19 Sitagliptin Phosphate [Januvia] 50 mg PO DAILY 02/01/19 Valsartan/Hydrochlorothiazide [Valsartan-Hctz 320-12.5 mg Tab] 1 tab PO DAILY Ipratropium/Albuterol Sulfate [Combivent Respimat 20-100 Mcg] 1 inh IH QID 02/03 Aspirin Coated [Ecotrin -] 81 mg PO DAILY 30 Days #30 tablet.ec 02/04/19 Atorvastatin Ca [Lipitor] 80 mg PO HS 30 Days #30 tablet 02/04/19 Amlodipine Besylate 10 mg PO DAILY #30 tablet 05/28/19 Valsartan 320 mg PO DAILY #30 tablet 05/28/19 This patient is new to me today: Yes Date on this admission: 05/29/19 Emergency Visit: Yes ED Registration Date: 05/25/19 Care time: The patient presented to the Emergency Department on the above date and was hospitalized for further evaluation of their emergent condition. Critical Care patient: No - Discharge Referral Referred to [facility] Med P.C.: No ATTENDING PHYSICIAN STATEMENT I saw and evaluated the patient. I reviewed the resident's note and discussed the case with the resident. I agree with the resident's findings and plan as documented. SUBJECTIVE: OBJECTIVE: ASSESSMENT AND PLAN:
[2019-05-29] MEDS ORDERED: VALSARTAN 160 MG TABLET (UD) PO SCH (10:00)
== END 2019-05-29 08:49 | disposition home or self-care (01) | DRG 683 ==
LOC: JER 18:00 → JERBED 22:48 → J8W 05-26 03:24
PROVIDERS: ADMIT Internal Medicine; ATTEND Internal Medicine
DX: N17.9 Acute kidney failure, unspecified (principal); I69.351 Hemiplegia and hemiparesis following cerebral infarction affecting right dominant side; E11.9 Type 2 diabetes mellitus without complications; I10 Essential (primary) hypertension; J45.909 Unspecified asthma, uncomplicated; E78.5 Hyperlipidemia, unspecified; I12.9 Hypertensive chronic kidney disease with stage 1 through stage 4 chronic kidney disease, or unspecified chronic kidney disease; N18.3 Chronic kidney disease, stage 3 (moderate); I25.10 Atherosclerotic heart disease of native coronary artery without angina pectoris; E66.3 Overweight; Z68.29 Body mass index [BMI] 29.0-29.9, adult
CPT/HCPCS: 36415; 70498-TC; 71046-TC-FY; 80048; 80053; 81003; 84100; 85025; 85027; 85610; 85730; 86850; 86900; 86901; 93005; 93010; 94640; 99284-25; J1644; J7030; Q9967

== ENCOUNTER 2019-06-01 00:08 | Emergency (ER) | payer OTHER ==
--- NOTE | 2019-06-01 00:13 | PDOC ---
History of Present Illness - General Chief Complaint: CVA/TIA Stated Complaint: STROKE Time Seen by Provider: 06/01/19 00:10 History Source: Patient Exam Limitations: No Limitations - History of Present Illness Initial Comments: Fabio Coburn is a 69 yo M w a hx of recent CVA in 02/07, HTN and IDDM who presents to the [facility] with new onset of right lower facial weakness, right arm and leg weakness, and a global aphasia. The patient is not able to speak. Per the he was well at 11:30 PM tonight, all of a sudden fell to the floor and could not move the right side of his face. Patient cannot provide any details, he cannot even shake his head to command. - Last known well time 11:30 - Patient takes aspirin and no other blood thinners PCP: Vega Arnold PSH: Courtney rivas sx Social Hx: Denies current smoking, drinking, or other substance usage Allergies: NKA, NKDA Past History - Past Medical History Allergies/Adverse Reactions: Allergies Allergy/AdvReac Type Severity Reaction Status Date / Time No Known Allergies Allergy Verified 05/25/19 18:07 Home Medications: Ambulatory Orders Fluticasone/Salmeterol [Advair 250-50 Diskus] 2 inh IN DAILY PRN 02/01/19 Metoprolol Tartrate [Lopressor] 50 mg PO BID 02/01/19 Montelukast Sodium [Singulair] 10 mg PO DAILY PRN 02/01/19 Sitagliptin Phosphate [Januvia] 50 mg PO DAILY 02/01/19 Valsartan/Hydrochlorothiazide [Valsartan-Hctz 320-12.5 mg Tab] 1 tab PO DAILY Ipratropium/Albuterol Sulfate [Combivent Respimat 20-100 Mcg] 1 inh IH QID 02/03 Aspirin Coated [Ecotrin -] 81 mg PO DAILY 30 Days #30 tablet.ec 02/04/19 Atorvastatin Ca [Lipitor] 80 mg PO HS 30 Days #30 tablet 02/04/19 Amlodipine Besylate 10 mg PO DAILY #30 tablet 05/28/19 Valsartan 320 mg PO DAILY #30 tablet 05/28/19 Asthma: Yes CVA: Yes (01/2019) COPD: No Diabetes: Yes HTN: Yes Hypercholesterolemia: Yes - Surgical History Orthopedic Surgery: Yes (dislocated shoulder 1972) - Immunization History Immunization Up to Date: Yes - Psycho Social/Smoking Cessation Hx Smoking History: Never smoked Have you smoked in the past 12 months: No Hx Alcohol Use: No Drug/Substance Use Hx: No Hx Substance Use Treatment: No Review of Systems - Review of Systems Able to Perform ROS?: Yes NIH Stroke Scale - Last Known Well Date/Time & Onset Date Last Known Well: 05/31/19 Time Last Known Well: 11:30 - Initial Evaluation Level of consciousness: Not alert, but arousable with minimal stimulation Ask patient the month and their age: Both incorrect Ask patient to open & close eyes; make fist and let go: Both incorrect Best gaze (horizontal eye movement): Partial gaze palsy Visual field testing: Partial hemianopia Facial paresis (Show teeth/raise eyebrows/close eyes tight): Complete paralysis of one or both sides (Upper and lower face) Motor Function: Left Arm: Normal Motor Function: Right Arm: No movement Motor Function: Left Leg: Normal (extends leg 30 degrees for 5 seconds without drift) Motor Function: Right Leg: No movement Limb Ataxia: Present in two limbs Sensory(Use pinprick test arms,legs,trunk,face/side to side): Severe to total sensory loss Best language (Describe picture, name items, read sentences): Severe aphasia Dysarthria (read several words): Near unintelligible or unable to speak Extinction and Inattention: Profound anny-inattention or extinction to more than one modality - Total Score NIH Stroke Scale Score: 28 tPA Exclusion Checklist 0-3hr - Time Elapsed Date last known well: 05/31/19 Time last known well: 23:30 Elaspsed time: Day(s) and 2 Hour(s) and 7 Minutes - Thrombolytic Therapy Candidate Is the patient eligible for Thrombolytic Therapy?: Yes - Exclusion Criteria 0-3hr SBP greater than 185 or DBP greater than 110mmHg despite tx: No Recent IC/spinal surgery,head trauma or stroke w/in last 3mo: No Hx of previous IC hemorrhage, IC neoplasm, AVM or aneurysm: No Active internal bleeding: No Blding diathesis(low plt ct, inc PTT,INR>1.7 or use of NOAC): No Symptoms suggest subarachnoid hemorrhage: No CT demonstrates multilobar infarct(>1/3 cerebral hemiphere): No Arterial puncture at noncompressible site in previous 7 days: No Blood glucose concentration less than 50mg/dL (2.7mmol/L): No - Relative Exclusion Criteria 0-3h Life expectancy <1yr/severe co-morbid illness/BUSINESS SYSTEMS MANAGER on admit: No : No Patient/family refused: No Rapid improvement: No Stroke severity too mild: No Recent acute KS (w/in previous 3 months): No Seizure at onset with postictal residual neuro impairments: No Major surgery or serious trauma w/in previous 14 days: No Recent GI or hemorrhage (w/in previous 21 days): No - Ineligibility reason(s) Reasons No tPA given: See reason(s) noted above Critical Care Time/MDM Note - Medical Decision Making Note: Fabio Coburn is a 69 yo M w a hx of recent CVA in 02/07, HTN and IDDM who presents to the [facility] with new onset of right lower facial weakness, right arm and leg weakness, and a global aphasia. The patient is not able to speak. Per the he was well at 11:30 PM tonight, all of a sudden fell to the floor and could not move the right side of his face. Patient cannot provide any details, he cannot even shake his head to command. - Last known well time 11:30 - Patient takes aspirin and no other blood thinners Vital Signs Temp Pulse Resp BP Pulse Ox 97.9 F 57 L 18 145/67 98 06/01/19 01:09 06/01/19 00:50 06/01/19 00:50 06/01/19 00:50 06/01/19 00:50 DDx IBNLT: Ischemic stroke, hemorrhagic stroke, SAH MDM: Patient was evaluated immediately upon arrival to ED and lisa murillo was colled. Patient went straight to CT scan where a dry CT scan was interpreted by myself and the attending as a large edematous defect on the left. We immediately obtained a CTA for the patient while he was still on the CT table. - Upon returning to the ED I received a call from imaging retail inventory control clerk Dr. Mccoy who confirmed that the patient has a - High density M1 lesion - distal left ICA m1 and m2 - Extremely obvious finding - Code trina was immediately initiated to [facility]. - We have spoken at length with the family telling them the risks of TPA, they agree that they want to do TPA right now. Dr. Guzman is the accepting neuro-interventionalist over at [facility] - Code red initiated - TPA start time 12:55 AM 06/01/19 - Dr. Guzman accepts patient as a transfer immediately over to [facility]. - Images uploaded to PACS and dropped into the [facility] file - BACKUP CD made and being transfered with ambulance - CT read of Head CT and CTA printed and given to paramedics. - Facesheet faxed to [phone] for [facility]. Paramedics have arrived at 1:15 to take the patient - He is on the TPA drip as he is leaving. - EMS walked out with patient at 1:37 am Discharge - Discharge Information Problems reviewed: Yes Clinical Impression/Diagnosis: Cerebrovascular accident (CVA) Qualifiers: CVA mechanism: thrombosis Precerebral and cerebral artery: middle cerebral artery Laterality of affected vessel: left Qualified Code(s): I63.312 - Cerebral infarction due to thrombosis of left middle cerebral artery Condition: Guarded Disposition: TRANSFER ACUTE CARE/OTHER HOSP - Admission No - Follow up/Referral Referrals: Vega Arnold Jr [Primary Care Provider] - - Patient Discharge Instructions Patient Printed Discharge Instructions: DI for Stroke-Ischemic - Post Discharge Activity - Transfer to Acute Care Facility Receiving Facility Name: [facility] [address] Accepting Physician:: Dr. Guzman Transfer Comment: Patient being transfered for Neuro-intervention over at [facility] Dr. Guzman is accepting doc and aware of patient information.
[2019-06-01] MEDS ORDERED: SODIUM CHLORIDE 1,000 ML IV SCH (00:15)
[2019-06-01] MEDS ORDERED: ALTEPLASE 100MG 100 MG ONE (00:25)
[2019-06-01] MEDS ORDERED: hydrALAZINE HCL 20 MG/ML VIAL IVPUSH ONE (00:48)
[2019-06-01] MEDS ORDERED: hydrALAZINE HCL 20 MG/ML VIAL ONE (00:49)
[2019-06-01] MEDS ORDERED: ALTEPLASE 50MG 50 MG/50 ML VIAL IVPB ONE (01:02)
[2019-06-01 01:09] VITALS: TEMP 97.9
[2019-06-01 01:19] LABS: BASO % 1.2 % (0-2.0); EOS % 14.2 % (0-4.5); HEMATOCRIT 38.6 % (35.4-49); HEMOGLOBIN 12.6 GM/dL (11.7-16.9); LYMPH % 25.3 % (8-40); MCH 27.2 pg (25.7-33.7); MCHC 32.7 g/dl (32.0-35.9); MEAN CELL VOLUME 83.2 fl (80-96); MEAN PLT VOLUME 10.1 fl (7.5-11.1); MONO % 10.7 % (3.8-10.2); NEUT % 48.6 % (42.8-82.8); PLATELET COUNT 144 K/MM3 (134-434); RBC 4.64 M/mm3 (4.00-5.60); RDW 15.2 % (11.9-15.9); WHITE BLOOD COUNT 9.7 K/mm3 (4.0-10.0)
[2019-06-01 01:34] LABS: INR 1.1 (0.83-1.09)
[2019-06-01 01:36] LABS: ACTIVATED PTT 38.3 SECONDS (25.2-36.5)
[2019-06-01 01:53] LABS: ALBUMIN 3.6 g/dl (3.4-5.0); BILIRUBIN,TOTAL 0.2 mg/dL (0.2-1); BLOOD UREA NITROGEN 19.2 mg/dL (7-18); CALCIUM 9.1 mg/dL (8.5-10.1); CREATININE 1.7 mg/dL (0.55-1.3); POTASSIUM 3.9 mmol/L (3.5-5.1); TOT PROT 6.9 g/dl (6.4-8.2)
[2019-06-01 01:56] LABS: PH,URINE 5.5 (5.0-8.0); URINE APPEARANCE CLEAR; URINE BILIRUBIN NEGATIVE (NEGATIVE); URINE COLOR YELLOW; URINE GLUCOSE (UA) NEGATIVE (NEGATIVE); URINE KETONE NEGATIVE (NEGATIVE); URINE LEUK ESTERASE NEGATIVE (NEGATIVE); URINE NITRITE NEGATIVE (NEGATIVE); URINE PROTEIN NEGATIVE (NEGATIVE)
--- NOTE | 2019-06-01 02:05 | PDOC ---
Documentation entered by Carolyn Jessica SCRIBE, acting as scribe for Maria Elena Hammond MD. Maria Elena Hammond MD: This documentation has been prepared by the chasidyibe, Carolyn Jessica SCRIBE, under my direction and personally reviewed by me in its entirety. I confirm that the documentation accurately reflects all work, treatment, procedures, and medical decision making performed by me. Attending Attestation - Resident Resident Name: Yoan Flood - ED Attending Attestation I have performed the following: I have examined & evaluated the patient, The case was reviewed & discussed with the resident, I agree w/resident's findings & plan, Exceptions are as noted - HPI HPI: 06/01/19 01:05 The patient is a 69-year-old male with a past medical history significant for CVA (right-sided residual), HTN, HLD, IDDM, Asthma who presents to the emergency department with Right-sided weakness and aphasia. Per , the patient was his usual self today, today at 11:30 pm, the patient abruptly fell to the floor, and was unable to move his right side of the face. EMS was called. Last known well: 11:30 pm Code Watts was activated in the ED. - Physicial Exam PE: 06/01/19 01:32 NAD, well appearing Bradycardia. CTABL soft NTND Neuro: Awake, alert, attends to stimuli with global aphasia. Dense right sided facial droop, dense hemiparesis of the right arm and right leg. Unable to answer questions. - Medical Decision Making 06/01/19 02:02 69yoM hx of known L carotid occlusion presents w/ sudden onset of dense R hemiparesis, R facial paralysis and global aphasia at 2330 tonight. Found to have acute occlusion L M1/M2, crash transfered to INRads at [facility]. - labs - cth, cta - IV tPA initiated 54 in consultation w/ [facility] INR. - consents for tPA and transfer obtained from family. - transfer to [facility].
[2019-06-01 02:52] LABS: PLATELET ESTIMATE SLT DECREASE
[2019-06-01 03:16] VITALS: BMI 29.0
[2019-06-01 03:23] VITALS: BP 138/67; PULSE 59
--- NOTE | 2019-06-01 09:04 | EKG ---
Test Reason : Blood Pressure : / mmHG Vent. Rate : 054 BPM Atrial Rate : 054 BPM P-R Int : 174 ms QRS Dur : 086 ms QT Int : 440 ms P-R-T Axes : 009 -01 111 degrees QTc Int : 417 ms SINUS BRADYCARDIA NONSPECIFIC T WAVE ABNORMALITY ABNORMAL ECG WHEN COMPARED WITH ECG OF 25-MAY-2019 18:16, Possible septal infarction no longer present Confirmed by Heber Childs ([id number]) on 06/01/2019 9:04:07 AM Referred By: Confirmed By:Heber Childs
== END 2019-06-01 01:30 | disposition short-term general hospital (02) ==
LOC: JER 00:08
DX: I63.312 Cerebral infarction due to thrombosis of left middle cerebral artery (principal); I10 Essential (primary) hypertension; E78.5 Hyperlipidemia, unspecified; E11.9 Type 2 diabetes mellitus without complications; Z79.4 Long term (current) use of insulin; J45.909 Unspecified asthma, uncomplicated; I69.851 Hemiplegia and hemiparesis following other cerebrovascular disease affecting right dominant side; Z86.79 Personal history of other diseases of the circulatory system; Z79.82 Long term (current) use of aspirin; R47.01 Aphasia; R29.810 Facial weakness; R29.728 NIHSS score 28
CPT/HCPCS: 36415; 70450-TC; 70496-TC; 80053; 80061; 81003; 82550; 82553; 82962; 83721; 84484; 85025; 85610; 85730; 93005; 93010; 99285-25; J2997; J7030; Q9967

== ENCOUNTER 2020-07-05 14:43 | Inpatient (IN) | payer OTHER ==
[2020-07-05] MEDS ORDERED: LACTATED RINGERS SOLUTION 1000 ML INFUS.BAG IV ONE (15:49)
[2020-07-05] MEDS ORDERED: PANTOPRAZOLE SODIUM 40 MG VIAL IVPUSH ONE (15:59)
[2020-07-05] MEDS ORDERED: PANTOPRAZOLE SODIUM 40 MG/100 ML BAG IVPB ONE (16:42)
[2020-07-05 17:22] LABS: VENOUS BASE EXCESS -1.2 mmol/L (-2-2); VENOUS O2 SATURATION 33.2 % (70-80); VENOUS PCO2 45.2 mmHg (38-52); VENOUS PH 7.35 (7.310-7.410)
[2020-07-05 17:31] LABS: BASO % 0.9 % (0-2.0); HEMATOCRIT 26.3 % (35.4-49); HEMOGLOBIN 8.4 GM/dL (11.7-16.9); LYMPH % 13.5 % (8-40); MCH 23.7 pg (25.7-33.7); MEAN PLT VOLUME 9.4 fl (7.5-11.1); MONO % 11.1 % (3.8-10.2); NEUT % 74.5 % (42.8-82.8); PLATELET COUNT 288 K/MM3 (134-434); RBC 3.55 M/mm3 (4.00-5.60); RDW 16.3 % (11.9-15.9); WHITE BLOOD COUNT 9.3 K/mm3 (4.0-10.0)
[2020-07-05 17:32] LABS: INR 2.57 (0.83-1.09); PROTHROMBIN TIME (PATIENT) 30.2 SEC (9.7-13.0)
[2020-07-05] MEDS ORDERED: FOLIC ACID INJECTION - 1 MG, THIAMINE HCL 100 MG, MULTIVIT INJECTION ADULT 10 ML in SOD... IVPB ONE (17:32)
[2020-07-05 17:34] LABS: ACTIVATED PTT 50.3 SECONDS (25.2-36.5)
[2020-07-05 17:38] LABS: CHLORIDE 104 mmol/L (98-107); POTASSIUM 4.5 mmol/L (3.5-5.1); SODIUM 136 mmol/L (136-145)
[2020-07-05 17:40] LABS: ALBUMIN 1.9 g/dl (3.4-5.0); ANION GAP 8 MMOL/L (8-16); CALCIUM 8.8 mg/dL (8.5-10.1); CO2 24 mmol/L (21-32)
[2020-07-05 17:41] LABS: BLOOD UREA NITROGEN 46.8 mg/dL (7-18); GLUCOSE,RANDOM 193 mg/dL (74-106)
[2020-07-05 17:43] LABS: BILIRUBIN,DIRECT 0.2 mg/dL (0.0-0.2); SGOT/AST 101 U/L (15-37); SGPT/ALT 61 U/L (13-61)
[2020-07-05 17:44] LABS: CREATININE 1.1 mg/dL (0.55-1.3)
[2020-07-05 17:45] LABS: BILIRUBIN,TOTAL 0.4 mg/dL (0.2-1); TOT PROT 7.6 g/dl (6.4-8.2)
[2020-07-05 17:46] LABS: ALK PHOS 89 U/L (45-117)
[2020-07-05 17:47] LABS: LDH 338 U/L (87-246)
[2020-07-05 17:53] LABS: LACTIC ACID 2.4 mmol/L (0.4-2.0)
[2020-07-05] MEDS ORDERED: DEXAMETHASONE SOD PHOSPHATE 4 MG/1 ML VIAL IVPUSH ONE (20:07)
[2020-07-05] MEDS ORDERED: DEXAMETHASONE SOD PHOSPHATE 10 MG/1 ML VIAL IVPUSH ONE (20:08)
[2020-07-05] MEDS ORDERED: DEXAMETHASONE SOD PHOSPHATE 10 MG/1 ML VIAL ONE (20:35)
[2020-07-06] MEDS ORDERED: PANTOPRAZOLE SODIUM 40 MG VIAL IVPUSH ONE (01:15)
[2020-07-06] MEDS ORDERED: PANTOPRAZOLE SODIUM 40 MG/100 ML BAG IVPB ONE ×2 (01:50→09:35)
[2020-07-06] MEDS ORDERED: SODIUM CHLORIDE 1,000 ML IV SCH ×3 (02:00→20:55)
[2020-07-06 02:23] LABS: LACTIC ACID 2.6 mmol/L (0.4-2.0)
[2020-07-06] MEDS: PANTOPRAZOLE SODIUM 80 MG in SODIUM CHLORIDE 100 ML IVPB SCH ×4 (02:53→22:09)
[2020-07-06 03:43] LABS: HEMATOCRIT 19.2 % (35.4-49); MCH 24.1 pg (25.7-33.7); MCHC 32.4 g/dl (32.0-35.9); MEAN CELL VOLUME 74.6 fl (80-96); MEAN PLT VOLUME 8.9 fl (7.5-11.1); PLATELET COUNT 232 K/MM3 (134-434); RBC 2.57 M/mm3 (4.00-5.60); RDW 16.5 % (11.9-15.9); WHITE BLOOD COUNT 8.8 K/mm3 (4.0-10.0)
[2020-07-06 03:47] LABS: HEMOGLOBIN 6.2 GM/dL (11.7-16.9)
[2020-07-06] MEDS ORDERED: ACETAMINOPHEN 325 MG TABLET (FP) PO PRN (05:38)
[2020-07-06] MEDS: INSULIN SLIDING SCALE (NOVOLOG) 1 VIAL SQ SCH ×4 (08:26→22:09)
[2020-07-06] MEDS ORDERED: PANTOPRAZOLE SODIUM 40 MG VIAL ONE (09:35)
[2020-07-06] MEDS ORDERED: ASCORBIC ACID 500 MG TABLET (FP) PO SCH (10:00)
[2020-07-06] MEDS ORDERED: CHOLECALCIFEROL (VIT D3) 1,000 UNIT (25 MCG) TABLET PO SCH (10:00)
[2020-07-06] MEDS ORDERED: ZINC SULFATE 220 MG CAPSULE (FP) PO SCH (10:00)
[2020-07-06] MEDS ORDERED: DEXAMETHASONE SOD PHOSPHATE 4 MG/1 ML VIAL IVPUSH SCH (10:00)
[2020-07-06] MEDS ORDERED: VANCOMYCIN 1 GM in D5W (PRE-DOCKED) 1,000 MG/250 ML IVPB ONE (12:56)
[2020-07-06 12:58] LABS: HEMATOCRIT 27.5 % (35.4-49); MCH 26.3 pg (25.7-33.7); MCHC 32.6 g/dl (32.0-35.9); MEAN CELL VOLUME 80.5 fl (80-96); MEAN PLT VOLUME 9.6 fl (7.5-11.1); PLATELET COUNT 176 K/MM3 (134-434); RBC 3.42 M/mm3 (4.00-5.60); RDW 16.2 % (11.9-15.9); WHITE BLOOD COUNT 13.6 K/mm3 (4.0-10.0)
[2020-07-06 13:09] LABS: INR 2.16 (0.83-1.09)
[2020-07-06 13:15] LABS: POTASSIUM 4.8 mmol/L (3.5-5.1)
[2020-07-06 13:19] LABS: CALCIUM 8.5 mg/dL (8.5-10.1)
[2020-07-06 13:20] LABS: ALBUMIN 1.8 g/dl (3.4-5.0); BLOOD UREA NITROGEN 70.6 mg/dL (7-18)
[2020-07-06 13:24] LABS: BILIRUBIN,TOTAL 0.6 mg/dL (0.2-1); TOT PROT 6.1 g/dl (6.4-8.2)
[2020-07-06] MEDS ORDERED: VANCOMYCIN 500 MG VIAL (RESTRICTED TO ID ONLY) ONE (13:27)
[2020-07-06 18:39] VITALS: BMI 16.3
[2020-07-06] MEDS ORDERED: PNEUMOC 13-VAL CONJ-DIP CRM/PF 0.5 ML DISP.SYRIN IM ONE (18:39)
[2020-07-06] MEDS ORDERED: PT OWN MED DRAWER 7, Y5N ONE (18:42)
[2020-07-06 20:49] LABS: HEMATOCRIT 23.4 % (35.4-49); HEMOGLOBIN 7.7 GM/dL (11.7-16.9); MCH 26.2 pg (25.7-33.7); MEAN CELL VOLUME 79.3 fl (80-96); MEAN PLT VOLUME 10.1 fl (7.5-11.1); PLATELET COUNT 166 K/MM3 (134-434); RBC 2.95 M/mm3 (4.00-5.60); RDW 16.3 % (11.9-15.9); WHITE BLOOD COUNT 16.2 K/mm3 (4.0-10.0)
[2020-07-06 20:59] LABS: INR 2.05 (0.83-1.09); PROTHROMBIN TIME (PATIENT) 24.7 SEC (9.7-13.0)
[2020-07-06 21:01] LABS: ACTIVATED PTT 43.1 SECONDS (25.2-36.5)
[2020-07-07] MEDS: PANTOPRAZOLE SODIUM 80 MG in SODIUM CHLORIDE 100 ML IVPB SCH ×2 (05:00→18:14)
[2020-07-07 07:02] LABS: HEMATOCRIT 23.7 % (35.4-49); HEMOGLOBIN 8.1 GM/dL (11.7-16.9); MCH 27.4 pg (25.7-33.7); MEAN CELL VOLUME 80.5 fl (80-96); MEAN PLT VOLUME 9.8 fl (7.5-11.1); PLATELET COUNT 140 K/MM3 (134-434); RBC 2.94 M/mm3 (4.00-5.60); RDW 15.7 % (11.9-15.9); WHITE BLOOD COUNT 11.6 K/mm3 (4.0-10.0)
[2020-07-07 07:08] LABS: INR 1.85 (0.83-1.09); PROTHROMBIN TIME (PATIENT) 22.4 SEC (9.7-13.0)
[2020-07-07 07:10] LABS: ACTIVATED PTT 41.5 SECONDS (25.2-36.5)
[2020-07-07 07:25] LABS: ALBUMIN 1.7 g/dl (3.4-5.0); BLOOD UREA NITROGEN 67.8 mg/dL (7-18)
[2020-07-07 07:26] LABS: CALCIUM 8.1 mg/dL (8.5-10.1)
[2020-07-07 07:27] LABS: MAGNESIUM 2.2 mg/dL (1.8-2.4)
[2020-07-07 07:28] LABS: CREATININE 0.9 mg/dL (0.55-1.3); PHOSPHOROUS 2.3 mg/dL (2.5-4.9)
[2020-07-07 07:29] LABS: BILIRUBIN,TOTAL 0.7 mg/dL (0.2-1)
[2020-07-07 07:30] LABS: TOT PROT 5.8 g/dl (6.4-8.2)
[2020-07-07] MEDS: INSULIN SLIDING SCALE (NOVOLOG) 1 VIAL SQ SCH ×3 (07:32→23:10)
[2020-07-07] MEDS ORDERED: PHYTONADIONE 10 MG/1 ML AMP SQ ONE (09:30)
[2020-07-07] MEDS ORDERED: VANCOMYCIN 1 GRAM (PRE-DOCKED) 1,000 MG/250 ML BAG IVPB SCH (10:00)
[2020-07-07] MEDS ORDERED: PROPOFOL 1,000,000 MCG/100 ML VIAL ONE (11:52)
[2020-07-07] MEDS ORDERED: SUCCINYLCHOLINE CHLORIDE 200 MG/10 ML SYRINGE ONE (11:52)
[2020-07-07] MEDS ORDERED: PROPOFOL 200 MG/20 ML VIAL IVPUSH ONE (12:34)
[2020-07-07] MEDS ORDERED: SUCCINYLCHOLINE CHLORIDE 200 MG/10 ML VIAL IVPUSH ONE (12:34)
[2020-07-07] MEDS ORDERED: FENTANYL IVPB 500 MCG/100 ML BAG IVPB ONE (12:42)
[2020-07-07] MEDS ORDERED: fentaNYL CITRATE 250 MCG/5 ML VIAL ONE (12:42)
[2020-07-07] MEDS: PROPOFOL 1,000,000 MCG/100 ML VIAL IVPB SCH (13:15)
[2020-07-07] MEDS: FENTANYL NS IVPB 500 MCG/100 ML BAG IVPB SCH ×2 (13:23→23:00)
[2020-07-07] MEDS: MUPIROCIN 2% TOPICAL OINTMENT FOR DECOLONIZATION NS SCH ×2 (13:23→23:10)
[2020-07-07] MEDS ORDERED: ERYTHROMYCIN *INJECTION* 500 MG VIAL IVPB ONE (13:30)
[2020-07-07] MEDS ORDERED: EPINEPHrine 1:10,000 (P-F SYR) 1 MG/10 ML DISP.SYRIN SQ ONE (15:28)
[2020-07-07 15:34] LABS: BF WBC & OTHER NUCLEATED CELLS 4696 /mm3; BODY FLUID MACROPHAGES 14 %
[2020-07-07 19:50] LABS: BASO % 0.2 % (0-2.0); EOS % 0.1 % (0-4.5); HEMATOCRIT 25.7 % (35.4-49); LYMPH % 12.1 % (8-40); MCH 28.6 pg (25.7-33.7); MCHC 34.9 g/dl (32.0-35.9); MEAN CELL VOLUME 82.1 fl (80-96); MEAN PLT VOLUME 10.7 fl (7.5-11.1); MONO % 7.4 % (3.8-10.2); NEUT % 80.2 % (42.8-82.8); PLATELET COUNT 139 K/MM3 (134-434); RBC 3.13 M/mm3 (4.00-5.60); RDW 15.4 % (11.9-15.9); WHITE BLOOD COUNT 11.2 K/mm3 (4.0-10.0)
[2020-07-07] MEDS ORDERED: CHLORHEXIDINE GLUCONATE 4% CLEANSER FOR DECOLONIZATION TP SCH (22:00)
[2020-07-08] MEDS: INSULIN SLIDING SCALE (NOVOLOG) 1 VIAL SQ SCH (06:13)
[2020-07-08] MEDS: PROPOFOL 1,000,000 MCG/100 ML VIAL IVPB SCH (06:14)
[2020-07-08 07:15] LABS: BASO % 0.2 % (0-2.0); EOS % 0.1 % (0-4.5); HEMATOCRIT 25.6 % (35.4-49); HEMOGLOBIN 8.7 GM/dL (11.7-16.9); LYMPH % 9.1 % (8-40); MCH 27.7 pg (25.7-33.7); MEAN CELL VOLUME 81.6 fl (80-96); MEAN PLT VOLUME 9.7 fl (7.5-11.1); MONO % 7.1 % (3.8-10.2); NEUT % 83.5 % (42.8-82.8); PLATELET COUNT 209 K/MM3 (134-434); RBC 3.13 M/mm3 (4.00-5.60); RDW 15.5 % (11.9-15.9)
[2020-07-08 07:19] LABS: ACTIVATED PTT 37.6 SECONDS (25.2-36.5); INR 1.55 (0.83-1.09); PROTHROMBIN TIME (PATIENT) 18.5 SEC (9.7-13.0)
[2020-07-08 07:53] LABS: POTASSIUM 4.2 mmol/L (3.5-5.1)
[2020-07-08 07:56] LABS: BLOOD UREA NITROGEN 63.4 mg/dL (7-18); CALCIUM 8.6 mg/dL (8.5-10.1)
[2020-07-08 07:57] LABS: MAGNESIUM 2.4 mg/dL (1.8-2.4)
[2020-07-08 08:00] LABS: PHOSPHOROUS 2.4 mg/dL (2.5-4.9)
[2020-07-08 08:01] LABS: BILIRUBIN,TOTAL 0.5 mg/dL (0.2-1); CREATININE 0.8 mg/dL (0.55-1.3); TOT PROT 6.1 g/dl (6.4-8.2)
[2020-07-08] MEDS ORDERED: EPINEPHrine 1:10,000 (P-F SYR) 1 MG/10 ML DISP.SYRIN ONE (08:08)
[2020-07-08 08:15] LABS: ALBUMIN 2.1 g/dl (3.4-5.0)
[2020-07-08 09:45] VITALS: BP 95/60; PULSE 95; TEMP 98.5
[2020-07-08] MEDS: PANTOPRAZOLE SODIUM 80 MG in SODIUM CHLORIDE 100 ML IVPB SCH ×2 (10:22)
== END 2020-07-08 10:30 | disposition short-term general hospital (02) | DRG 871 ==
LOC: JER 14:43 → JERBED 21:20 → J4S 07-06 16:20 → JICU 07-07 11:06
PROVIDERS: ADMIT Internal Medicine; ATTEND Internal Medicine
PROC: 0CHY7BZ Insertion of Airway into Mouth and Throat, Via Natural or Artificial Opening (ICD-10-PCS; 2020-07-07)
PROC: 5A1935Z Respiratory Ventilation, Less than 24 Consecutive Hours (ICD-10-PCS; 2020-07-07)
PROC: 0W3P8ZZ Control Bleeding in Gastrointestinal Tract, Via Natural or Artificial Opening Endoscopic (ICD-10-PCS; 2020-07-07)
PROC: 3E0G8GC Introduction of Other Therapeutic Substance into Upper GI, Via Natural or Artificial Opening Endoscopic (ICD-10-PCS; 2020-07-07)
PROC: 30233K1 Transfusion of Nonautologous Frozen Plasma into Peripheral Vein, Percutaneous Approach (ICD-10-PCS; 2020-07-07)
PROC: 30233N1 Transfusion of Nonautologous Red Blood Cells into Peripheral Vein, Percutaneous Approach (ICD-10-PCS; 2020-07-07)
PROC: 30233R1 Transfusion of Nonautologous Platelets into Peripheral Vein, Percutaneous Approach (ICD-10-PCS; 2020-07-07)
PROC: 0W9B30Z Drainage of Left Pleural Cavity with Drainage Device, Percutaneous Approach (ICD-10-PCS; principal; 2020-07-07 14:00)
DX: A41.1 Sepsis due to other specified staphylococcus (principal); U07.1 COVID-19; J12.82 Pneumonia due to coronavirus disease 2019; D62 Acute posthemorrhagic anemia; I24.8 Other forms of acute ischemic heart disease; K92.2 Gastrointestinal hemorrhage, unspecified; R64 Cachexia; Z68.1 Body mass index [BMI] 19.9 or less, adult; I69.354 Hemiplegia and hemiparesis following cerebral infarction affecting left non-dominant side; J90 Pleural effusion, not elsewhere classified; E87.2 Acidosis; R65.20 Severe sepsis without septic shock; E11.9 Type 2 diabetes mellitus without complications; I10 Essential (primary) hypertension; E78.00 Pure hypercholesterolemia, unspecified; J45.909 Unspecified asthma, uncomplicated; R09.02 Hypoxemia; D72.829 Elevated white blood cell count, unspecified
CPT/HCPCS: 31500; 36415; 36430; 36511; 71045-TC-FY; 71250-TC; 74174-TC; 76604; 76775-TC; 80053; 82042; 82150; 82248; 82272; 82550; 82553; 82728; 82803; 82945; 82962; 83540; 83550; 83605; 83615; 83735; 83970; 83986; 84100; 84157; 84478; 84484; 84560; 85025; 85027; 85045; 85379; 85610; 85730; 86140; 86769; 86850; 86900; 86901; 86922; 87040; 87070; 87075; 87116; 87186; 87205; 87206; 87804; 88108; 88305-TC; 93005; 93010; 94002; 97161-GP; 99285-25; C9803; J1100; P9017; P9034; P9038; P9058; U0003